=== PATIENT | female | born 1935 | race Caucasian/White ===

== ENCOUNTER 2020-10-30 17:49 | Inpatient (IN) ==
[2020-10-30] MEDS ORDERED: ONDANSETRON INJ 2 MG/ML 2 ML VIAL IV STA (17:57)
[2020-10-30 18:31] LABS: Basophils # (auto) 0.01 K/uL (0-0.2); Basophils % (auto) 0.1 %; Eosinophils # (auto) 0.06 K/uL (0-0.5); Eosinophils % (auto) 0.5 %; Hematocrit (blood only) 40.5 % (37-47); Hemoglobin 13.2 g/dL (12.0-16.0); Immature Granulocytes # (auto) 0.05 K/uL (0.00-0.02); Immature Granulocytes % (auto) 0.5 %; Lymphocytes # (auto) 1.31 K/uL (1.2-3.4); Lymphocytes % (auto) 11.8 %; Mean Corpuscular Hemoglobin 29.1 pg (25-34); Mean Corpuscular Hgb Conc 32.6 g/dL (32-36); Mean Corpuscular Volume 89.4 fL (80-100); Monocytes # (auto) 0.69 K/uL (0.11-0.59); Monocytes % (auto) 6.2 %; Neutrophils # (auto) 8.95 K/uL (1.4-6.5); Neutrophils % (auto) 80.9 %; Platelet Count 192 K/uL (130-400); RDW Coefficient of Variation 13.6 % (11.5-14.5); RDW Standard Deviation 44.7 fL (36.4-46.3); Red Blood Count 4.53 M/uL (4.2-5.4); White Blood Count 11.07 K/uL (4.8-10.8)
--- NOTE | 2020-10-30 18:37 | Emergency Department Note ---
Impression & Plan Intertrochanteric fracture of right hip ED Provider Note NAME: JOEL CHAPPELL AGE: 85 SEX: F : 1935 ARRIVES VIA: Ambulance INFORMANT: Patient, ED PROVIDER(S): Ruel Augustin DO CHIEF COMPLAINT: Hip pain HPI: The patient is an 85-year-old female who presented to the emergency department for an evaluation of hip pain. The patient was on her front porch when she fell. She fell onto her right side striking her hip. She was unable to stand. 911 was called and the patient arrived via BLS. The patient states she did not strike her head. She has no neck pain or chest pain. She denies having any nausea or vomiting. She states that she was unable to stand and has severe pain in her right hip with any attempts to stand. She states she is on no blood thinners. She has no headache or neck pain. She denies having any back pain. She states the pain does radiate down through her right thigh but not into her right knee. She states the pain is moderate to severe with any movement. ROS: See above HPI for pertinent positives & negatives. A total of 10 systems reviewed and were otherwise negative. PAST MEDICAL HISTORY: See Below PAST SURGICAL HISTORY: See Below FAMILY HISTORY: See Below SOCIAL HISTORY: See Below HOME MEDICATIONS: See Below ALLERGIES: See Below VITALS: See Below PHYSICAL EXAMINATION: GENERAL: The patient is awake and alert. The patient is uncomfortable appear ing. EYES: The conjunctivae are clear. The pupils are round and reactive. EARS, NOSE, MOUTH AND THROAT: The nose is without any evidence of any deformity. NECK: The neck is nontender and supple. RESPIRATORY: Normal respiratory effort is noted there is no evidence of wheezing rhonchi or rales CARDIOVASCULAR: Regular rate and rhythm noted there no murmurs rubs or gallops normal S1 normal S2. GASTROINTESTINAL: The abdomen is soft. Abdomen is nontender. BACK: No midline tenderness or or step-off noted range of motion in flexion extension as well as rotation no signs of muscle spasm noted MUSCULOSKELETAL/EXTREMITIES: There is no significant rotation of the right lower extremity but there is significant pain with range of motion testing of the right hip. There is palpable tenderness over the lateral aspect of the right hip. The right lower extremity is mildly shortened. Pulses are symmetric in both feet. SKIN: Skin is warm and dry. There is no significant pedal edema. Multiple ab rasions were noted to both elbows. No active bleeding was noted. Wound dressings were in place. NEUROLOGIC: Patient is awake alert and oriented x3. MEDICAL DECISION MAKING: The patient is an 85-year-old female who presented to the emergency department for an evaluation of hip pain. The patient had a fall from a standing position where she struck her right hip. The patient also had multiple abrasions to both upper extremities. I discussed the patient's laboratory and radiographic studies with her and her son. I also [facility] They will evaluate the patient in the emergency department for further management and disposition. The patient was treated with IV pain medication. She was significantly improved on reevaluation. Triage Nursing notes reviewed. Prior medical records reviewed Vital Signs: reviewed and remarkable for elevated blood pressure. Differential diagnosis: Fracture, dislocation, contusion, intra-abdominal, pneumothorax, intrathoracic, intracranial, neurologic, compartment syndrome, rhabdomyolysis, as well as other pathologies. ER treatment provided: See below Diagnostics interpreted by me: ECG: EKG was obtained in the emergency department. My interpretation is sinus rhythm at 72 bpm. Right bundle branch block pattern was noted. PVC was noted. This was compared to a tracing from April 252007. The ectopy was new otherwise no significant changes were noted. Cardiac Monitoring: An order was placed for continuous cardiac monitoring. The monitor shows a rate of 75 bpm with sinus rhythm. Laboratory studies: As stated above and show below. Imaging studies: See below Consultation(s): 1900: I discussed this case with Dr. Arevalo who is [facility] They will evaluate the patient in the emergency department. 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 Beliefs That Will Affect Care: None Current Living Situation: Alone Other Information That Helps Us Care for You: No Feels Safe at Home: Yes Safety Concerns: Feels Safe At This Time Assistive Devices: Glasses Allergies Allergies Allergy/AdvReac Type Severity Reaction Status Date / Time amitriptyline Allergy felt Verified 10/30/20 19:05 fearful Penicillins Allergy throat Verified 10/30/20 19:05 swelling Home Meds Home Medications Medication Instructions Recorded Confirmed cholecalciferol (vitamin D3) 25 25 mcg PO DAILY@1000 10/30/20 10/30/20 mcg (1,000 unit) tablet (Vitamin D3) cyanocobalamin (vitamin B-12) 1,000 mcg PO DAILY 10/30/20 10/30/20 1,000 mcg tablet (Vitamin B-12) escitalopram oxalate 5 mg tablet 5 mg PO PM 10/30/20 10/30/20 folic acid 1 mg tablet 1 mg PO DAILY 10/30/20 10/30/20 lorazepam 0.5 mg tablet 0.5 mg PO TID 10/30/20 10/30/20 mesalamine 500 mg 1,000 mg PO TID 10/30/20 10/30/20 capsule,controlled release (Pentasa) pantoprazole 40 mg tablet,delayed 40 mg PO DAILYBB 10/30/20 10/30/20 release verapamil 240 mg tablet,extended 240 mg PO QAM 10/30/20 10/30/20 release Results & Data (ED) Vital Signs Vital Signs - 24 hr 10/30/20 18:03 Temperature 36.9 C Temperature Source Oral Pulse Rate 74 Respiratory Rate 16 Respiratory Effort / Characteristics Non-Labored Respiratory Depth Normal Blood Pressure 186/102 H Blood Pressure Mean 130 Pulse Oximetry 96 Oxygen Delivery Method Room Air Sepsis Recent Fever Within 48 Hours No Sepsis New/Unexplained Change in Mental Status N/A Sepsis Action Taken by Nursing No Action Required Laboratory Data Result diagrams: 10/31/20 07:08 10/31/20 07:08 Lab Results 10/30/20 10/30/20 10/30/20 Range/Units 18:10 18:10 18:20 WBC 11.07 H (4.8-10.8) K/uL RBC 4.53 (4.2-5.4) M/uL Hgb 13.2 (12.0-16.0) g/dL Hct 40.5 (37-47) % MCV 89.4 (80-100) fL MCH 29.1 (25-34) pg MCHC 32.6 (32-36) g/dL RDW Std Deviation 44.7 (36.4-46.3) fL RDW Coeff of Saturnino 13.6 (11.5-14.5) % Plt Count 192 (130-400) K/uL MPV 11.0 H (7.4-10.4) fL Immature Gran % (Auto) 0.5 % Neut % (Auto) 80.9 % Lymph % (Auto) 11.8 % Esmeralda % (Auto) 6.2 % Eos % (Auto) 0.5 % Baso % (Auto) 0.1 % Neut # (Auto) 8.95 H (1.4-6.5) K/uL Lymph # (Auto) 1.31 (1.2-3.4) K/uL Esmeralda # (Auto) 0.69 H (0.11-0.59) K/uL Eos # (Auto) 0.06 (0-0.5) K/uL Baso # (Auto) 0.01 (0-0.2) K/uL Immature Gran # (Auto) 0.05 H (0.00-0.02) K/uL PT (9.0-12.0) Seconds INR (0.9-1.1) APTT (21.0-31.0) Seconds PTT Ratio Sodium (136-145) mmol/L Potassium (3.5-5.1) mmol/L Chloride (98-107) mmol/L Carbon Dioxide (21-32) mmol/L Anion Gap (3-11) BUN (7-18) mg/dl Creatinine (0.6-1.2) mg/dl Est Cr Clr Drug Dosing ml/min Est GFR ( Amer) ml/min Est GFR (Non-Af Amer) ml/min BUN/Creatinine Ratio (10-20) Glucose (70-99) mg/dl Calcium (8.5-10.1) mg/dl Magnesium (1.8-2.4) mg/dl Total Bilirubin (0.2-1) mg/dl AST (15-37) U/L ALT (12-78) U/L Alkaline Phosphatase (45-117) U/L Total Creatine Kinase (26-192) U/L Troponin I (0-0.045) ng/ml Total Protein (6.4-8.2) gm/dl Albumin (3.4-5.0) gm/dl Globulin (2.5-4.0) gm/dl Albumin/Globulin Ratio (0.9-2) TSH (0.300-4.500) uIu/ml COVID-19 Eval Order Covid19 at [facility] SARS-CoV-2 (PCR) NEGATIVE (Negative) 10/30/20 10/30/20 Range/Units 18:20 18:20 WBC (4.8-10.8) K/uL RBC (4.2-5.4) M/uL Hgb (12.0-16.0) g/dL Hct (37-47) % MCV (80-100) fL MCH (25-34) pg MCHC (32-36) g/dL RDW Std Deviation (36.4-46.3) fL RDW Coeff of Saturnino (11.5-14.5) % Plt Count (130-400) K/uL MPV (7.4-10.4) fL Immature Gran % (Auto) % Neut % (Auto) % Lymph % (Auto) % Esmeralda % (Auto) % Eos % (Auto) % Baso % (Auto) % Neut # (Auto) (1.4-6.5) K/uL Lymph # (Auto) (1.2-3.4) K/uL Esmeralda # (Auto) (0.11-0.59) K/uL Eos # (Auto) (0-0.5) K/uL Baso # (Auto) (0-0.2) K/uL Immature Gran # (Auto) (0.00-0.02) K/uL PT 10.0 (9.0-12.0) Seconds INR 1.0 (0.9-1.1) APTT 23.0 (21.0-31.0) Seconds PTT Ratio 0.9 Sodium 142 (136-145) mmol/L Potassium 3.6 (3.5-5.1) mmol/L Chloride 108 H (98-107) mmol/L Carbon Dioxide 27 (21-32) mmol/L Anion Gap 7.0 (3-11) BUN 16 (7-18) mg/dl Creatinine 1.00 (0.6-1.2) mg/dl Est Cr Clr Drug Dosing 36.3 ml/min Est GFR ( Amer) 59.1 ml/min Est GFR (Non-Af Amer) 51.0 ml/min BUN/Creatinine Ratio 15.9 (10-20) Glucose 108 H (70-99) mg/dl Calcium 9.0 (8.5-10.1) mg/dl Magnesium 1.9 (1.8-2.4) mg/dl Total Bilirubin 0.3 (0.2-1) mg/dl AST 13 L (15-37) U/L ALT 20 (12-78) U/L Alkaline Phosphatase 68 (45-117) U/L Total Creatine Kinase 87 (26-192) U/L Troponin I < 0.015 (0-0.045) ng/ml Total Protein 7.5 (6.4-8.2) gm/dl Albumin 3.8 (3.4-5.0) gm/dl Globulin 3.7 (2.5-4.0) gm/dl Albumin/Globulin Ratio 1.0 (0.9-2) TSH 1.210 (0.300-4.500) uIu/ml COVID-19 Eval Order SARS-CoV-2 (PCR) (Negative) Administered Medications Cyanocobalamin (Cyanocobalamin 500 Mcg Tablet (Vitamin B-12)) 1,000 mcg PO DAILY YOANA Stop: 11/30/20 08:59 Last Admin: 10/31/20 07:51 Dose: 1,000 mcg Documented by: [id number] Escitalopram Oxalate (Escitalopram Oxalate 10 Mg Tab) 5 mg PO PM YOANA Stop: 11/29/20 21:59 Last Admin: 10/30/20 21:43 Dose: 5 mg Documented by: [id number] Folic Acid (Folic Acid 1 Mg Tab) 1 mg PO DAILY YOANA Stop: 11/30/20 08:59 Last Admin: 10/31/20 07:52 Dose: 1 mg Documented by: [id number] Lactated Ringer's (Lr) 1,000 mls @ 50 mls/hr IV .Q20H YOANA Stop: 11/29/20 21:09 Last Admin: 10/30/20 21:42 Dose: 50 mls/hr Documented by: [id number] Lorazepam (Lorazepam 0.5 Mg Tab) 0.5 mg PO TID YOANA Stop: 11/29/20 21:59 Last Admin: 10/31/20 07:52 Dose: 0.5 mg Documented by: [id number] Admin: 10/31/20 07:20 Dose: Not Given Documented by: [id number] Mesalamine (Mesalamine 250 Mg Capcr) 1,000 mg PO TID@1000,1500,2200 YOANA Stop: 11/29/20 21:59 Last Admin: 10/30/20 21:43 Dose: 1,000 mg Documented by: [id number] Morphine Sulfate (Morphine Sulfate 2 Mg/Ml Carp) 2 mg IV Q4H PRN PRN Reason: Pain (1,2,3,4,5) & Pre PT Stop: 11/13/20 20:55 Last Admin: 10/31/20 02:04 Dose: 2 mg Documented by: [id number] Admin: 10/30/20 21:42 Dose: 2 mg Documented by: [id number] Pantoprazole Sodium (Pantoprazole 40 Mg Tab) 40 mg PO DAILYBB [facility] Stop: 11/30/20 06:29 Last Admin: 10/31/20 07:51 Dose: 40 mg Documented by: [id number] Senna/Docusate Sodium (Docusate Sodium/Senna 50/8.6mg Tab) 2 tab PO HS [facility] Stop: 11/29/20 21:59 Last Admin: 10/30/20 21:56 Dose: Not Given Documented by: [id number] Verapamil HCl (Verapamil Hcl 240 Mg Tabcr) 240 mg PO QAM YOANA Stop: 11/30/20 08:59 Last Admin: 10/31/20 07:52 Dose: 240 mg Documented by: [id number] Discontinued Medications Fentanyl Citrate (Fentanyl Citrate 100 Mcg/2 Ml Vial) 25 mcg IV Q15M PRN PRN Reason: Pain Stop: 11/13/20 17:56 Last Admin: 10/30/20 19:41 Dose: 25 mcg Documented by: [id number] Admin: 10/30/20 18:49 Dose: 25 mcg Documented by: [id number] Ondansetron HCl (Ondansetron Inj 2 Mg/Ml 2 Ml Vial) 4 mg IV NOW STA Stop: 10/30/20 17:58 Last Admin: 10/30/20 18:49 Dose: 4 mg Documented by: [id number] Imaging Data Radiologist's Impression: Chest X-Ray 10/30/20 17:57 XR chest 1V portable CLINICAL HISTORY: weakness COMPARISON STUDY: January 30, 2013 FINDINGS: No pneumothorax. Minimal blunting of the left costophrenic angle is seen and might represent small left pleural effusion or pleural thickening. Eventration of the right hemidiaphragm appear more prominent since prior study in 2012. No large infiltrates or consolidative lesions are seen. Diffuse prominence of pulmonary interstitium is seen bilaterally. Cardiomediastinal silhouette is within normal limits in size. Aorta is tortuous and calcified. Interval development of a double density sign superimposed on the right cardiac silhouette which might represent enlargement of the left atrium or paraspinal lesion. No significant pulmonary vascular congestion.. Osseous structures: Osteopenia. Degenerative changes of the spine. IMPRESSION: 1. No large infiltrates or consolidative lesions. 2. Possible enlargement of the left atrium versus paraspinal lesion as detailed above. 3. Possible minimal left pleural effusion. 4. Diffuse prominence of pulmonary interstitium. 5. Atherosclerosis. ACT 112: Positive. There are findings on this exam that require communication between the performing entity and the patient following Patient Test Result Information Act ([place] Act 112) guidelines. The above report was generated using voice recognition software. It may contain grammatical, syntax or spelling errors. Electronically signed by: Hanny Cole DO 10/30/2020 6:55 PM Hip/Pelvis X-Ray 10/30/20 17:57 XR hip RT 2V w pelvis CLINICAL HISTORY: Fall. Right hip pain COMPARISON: December 22, 2017 DISCUSSION: There is comminuted intertrochanteric fracture of the right hip is seen with minimal impaction. No definite dislocation is seen. IMPRESSION: As above ACT 112: Negative or not required by law. The above report was generated using voice recognition software. It may contain grammatical, syntax or spelling errors. Electronically signed by: Hanny Cole DO 10/30/2020 6:48 PM Discharge Plan Visit Data Chief Complaint: Hip Pain Stated Complaint: FALL, HIP PAIN ED Provider: Ruel Augustin Discharge Problem: Intertrochanteric fracture of right hip Patient Disposition: Admitted As Inpatient Condition: Good Discharge Instructions Interventions: ED Discharge Assessment Last Done: 10/30/20 20:37 Discharge Problem: Intertrochanteric fracture of right hip Qualifiers: Encounter type: initial encounter Fracture type: closed Fracture alignment: displaced Qualified Code(s): S72.141A - Displaced intertrochanteric fracture of right femur, initial encounter for closed fracture
[2020-10-30 18:42] LABS: Partial Thromboplastin Ratio 0.9
[2020-10-30 18:48] LABS: Alanine Aminotransferase 20 U/L (12-78); Albumin Level 3.8 gm/dl (3.4-5.0); Aspartate Aminotransferase 13 U/L (15-37); BUN Creatinine Ratio 15.9 (10-20); Blood Urea Nitrogen 16 mg/dl (7-18); Carbon Dioxide 27 mmol/L (21-32); Chloride 108 mmol/L (98-107); Creatinine Clr Calc Pharmacy 36.3 ml/min; Est GFR (African American) 59.1 ml/min; Glucose 108 mg/dl (70-99); Magnesium 1.9 mg/dl (1.8-2.4); Potassium 3.6 mmol/L (3.5-5.1); Sodium 142 mmol/L (136-145)
[2020-10-30] MEDS: fentaNYL citrate 100 MCG/2 ML VIAL IV PRN ×2 (18:49→19:41)
--- NOTE | 2020-10-30 18:50 | XRay Report ---
XR hip RT 2V w pelvis CLINICAL HISTORY: Fall. Right hip pain COMPARISON: December 22, 2017 DISCUSSION: There is comminuted intertrochanteric fracture of the right hip is seen with minimal impaction. No de finite dislocation is seen. IMPRESSION: As above ACT 112: Negative or not required by law. The above report was generated using voice recognition software. It may contain grammatical, syntax o r spelling errors. Electronically signed by: Hanny Cole DO 10/30/2020 6:48 PM
--- NOTE | 2020-10-30 18:56 | XRay Report ---
XR chest 1V portable CLINICAL HISTORY: weakness COMPARISON STUDY: January 30, 2013 FINDINGS: No pneumothorax. Minimal blunting of the left costophrenic angle is seen and might represent small left pleural effusi on or pleural thickening. Eventration of the right hemidiaphragm appear more prominent since prior st udy in 2012. No large infiltrates or consolidative lesions are seen. Diffuse prominence of pulmonary interstitium is seen bilaterally. Cardiomediastinal silhouette is within normal limits in size. Aorta is tortuous and calcified. Interval development of a double density sign superimposed on the ri ght cardiac silhouette which might represent enlargement of the left atrium or paraspinal lesion. No significant pulmonary vascular congestion.. Osseous structures: Osteopenia. Degenerative changes of the spine. IMPRESSION: 1. No large infiltrates or consolidative lesions. 2. Possible enlargement of the left atrium versus paraspinal lesion as detailed above. 3. Possible minimal left pleural effusion. 4. Diffuse prominence of pulmonary interstitium. 5. Atherosclerosis. ACT 112: Positive. There are findings on this exam that require communication between the performing entity and the patient following Patient Test Result Information Act ([place] Act 112) guidelines. The above report was generated using voice recognition software. It may contain grammatical, syntax o r spelling errors. Electronically signed by: Hanny Cole DO 10/30/2020 6:55 PM
[2020-10-30 18:59] LABS: Alkaline Phosphatase 68 U/L (45-117); Bilirubin,Total 0.3 mg/dl (0.2-1); Globulin 3.7 gm/dl (2.5-4.0); Total Protein 7.5 gm/dl (6.4-8.2); Troponin I < 0.015 ng/ml (0-0.045)
--- NOTE | 2020-10-30 19:42 | History & Physical Report ---
Date of Service October 30, 2020 Assessment & Plan (1) Intertrochanteric fracture of right hip: Plan: Kimberlyn is an 85-year-old female with a notable past medical history of hypertension, Crohn's disease status post resection, and anxiety who presents today for right hip pain. Kimberlyn says she was at home on her front porch, walking up a step when she fell on her right side and hit her hip, subsequently found to have an intertrochanteric fracture involving the RIGHT hip. Right Intertrochanteric Fracture In the setting of mechanical fall onto right side/hip X-ray of right hip demonstrating commuted intertrochanteric fracture with mi nimal impaction Consult orthopedics, [facility], for aid in likely procedural management Hemodynamically stable. H&H within normal range. Type and screen sent N.p.o. Tylenol 1 g IV as needed for pain, as needed, alongside morphine 2 mg IV every 4 as neededcan consider increasing as needed Activity: No ambulation for now, stay in bed We will add CPK given that patient was down for multiple hours prior to being found Left atrial enlargement versus paraspinal lesion Chest x-ray revealing for mediastinal/retromediastinal enlargement, suggestive of possible atrial enlargement versus paraspinal mass In setting of fracture, as well as potential procedure, proceed with CT of the chest with focus on spine and right atrium for further characterization ECG revealing for left axis deviation and right bundle branch block, no significant hypertrophy Pending results of study, can consider further imaging studies (e.g., echocardiography) versus consultation as needed Anxiety Stable at present Continue Ativan 0.5 mg 3 times daily; of note, I confirmed with patient that this is what she takes at home, she does not take it as needed, she takes it scheduled Hypertension Continue verapamil to 40 mg every morning Crohn's disease Status post resection Stable, continue mesalamine Dispo: MS PPX: SCDs FEN/GI: NPO. LR @ 50cc/hr (04/15 [facility]) Code: FULL CODE (2) HTN (hypertension): (3) Crohn disease: History of Present Illness Primary Care Provider: Mariza Lord DO Kimberlyn is an 85-year-old female with a notable past medical history of hypertension, Crohn's disease status post resection, and anxiety who presents today for right hip pain. Kimberlyn says she was at home on her front porch, walking up a step when she fell on her right side and hit her hip. She felt pain immediately, but denies hitting her head or loss of consciousness. She said that she laid on the ground for almost an hour before someone was able to get help, at which time her niece came over to see her and initiate getting her over to the hospital. Prior to this, she denied any lightheadedness or dizziness. She denied any chest pain, palpitations, shortness of breath. Says she was otherwise within her normal health. No previous history of fractures. In the ED, patient was found to have evidence of a right intertrochanteric fracture as well as the chest x-ray revealing of an area within the general region of the left atrium, suggestive of possible left atrial enlargement versus paraspinal mass/lesion. She was given fentanyl X 1 with good control pain. She lives at home alone. Past medical history significant for hypertension, anxiety, Crohn's status post resection, and previous achalasia status post esophageal surgery. She is on verapamil 240 daily for hypertension, esomeprazole 40 daily for gastroesophageal reflux, Ativan 0.5 mg 3 times daily for anxiety, as well as mesalamine 1 g 3 times daily. Other than the aforementioned, her only other abdominal surgery is previous cholecystectomy. She denies tobacco use, alcohol use, and recreational drug use. Allergies Allergy/AdvReac Type Severity Reaction Status Date / Time amitriptyline Allergy felt Verified 10/30/20 19:05 fearful Penicillins Allergy throat Verified 10/30/20 19:05 swelling Home Medications Medication Instructions Recorded Confirmed Type cholecalciferol (vitamin D3) 25 25 mcg PO DAILY@1000 10/30/20 10/30/20 History mcg (1,000 unit) tablet (Vitamin D3) cyanocobalamin (vitamin B-12) 1,000 mcg PO DAILY 10/30/20 10/30/20 History 1,000 mcg tablet (Vitamin B-12) escitalopram oxalate 5 mg tablet 5 mg PO PM 10/30/20 10/30/20 History folic acid 1 mg tablet 1 mg PO DAILY 10/30/20 10/30/20 History lorazepam 0.5 mg tablet 0.5 mg PO TID 10/30/20 10/30/20 History mesalamine 500 mg 1,000 mg PO TID 10/30/20 10/30/20 History capsule,controlled release (Pentasa) pantoprazole 40 mg tablet,delayed 40 mg PO DAILYBB 10/30/20 10/30/20 History release verapamil 240 mg tablet,extended 240 mg PO QAM 10/30/20 10/30/20 History release Past Med/Surg History Medical History (Updated 10/31/20 @ 13:06 by Madi Meredith DO) Crohn's disease (01/30/13) GERD (gastroesophageal reflux disease) History of hypertension Surgical History History of bowel resection Social History Smoking Status: Never smoker Hx Alcohol Use: No Hx Substance Use: No Preferred Language: [place] Communication Ability: Effective Sports Photographer Required: No Beliefs That Will Affect Care: None marital status: / Current Living Situation: Alone Other Information That Helps Us Care for You: No Feels Safe at Home: Yes Safety Concerns: Feels Safe At This Time Assistive Devices: None Review of Systems Review of Systems: Constitutional: Denies fever, chills, malaise, weight change Eyes: Denies double vision, vision change, eye pain ENT: Denies ear pain, sore throat, sinus pain Cardiovascular: Denies Chest pain, chest pressure, palpitations, extremity swelling Respiratory: Denies shortness of breath, cough, sputum production, difficulty breathing Gastrointestinal: Denies abdominal pain, nausea, vomiting, constipation, diarrhea Genitourinary: Denies urinary symptoms including dysuria Musculoskeletal: Denies weakness, muscle aches/pain, joint aches/pain Integumentary:Denies rash, lesions, bruising Neurological: Denies headache, numbness, tingling, focal weakness Physical Exam Physical Exam: General: Well-appearing 85-year-old female who is lying back in her hospital bed relaxed upon my arrival. No acute distress. HEENT: NCAT. Eyes - Sclera are white, anicteric, and without injection. PERRL. EOMs display full ROM bilaterally. Mouth - MMM with no tonsillar edema or exudates. Nose - nasal turbinates are uninflamed and without discharge. Cardiac: Normal rate and regular rhythm; S1 and S2 present with no murmurs, rubs, or gallops. Pulmonary: Good respiratory effort with symmetric expansion of the chest. No use of accessory muscles. Lungs were clear to auscultation bilaterally with no crackles or wheezes. Abdominal: Normoactive bowel sounds. Abdomen was soft, nondistended, and non- tender to palpation. Extremities: Upper and lower extremities are warm and well perfused. Capillary refill assessed in UE was < 3 sec in UE/LE MSK: Visual examination of the right hip does not reveal any obvious contusion or hematoma. There is no obvious deformities with palpation. There is mild tenderness to palpation on the general vicinity of the intertrochanteric groove. There is 23/5 strength at the right hip with flexion. There is 4/5 strength at the right knee with supported passive flexion. Distal pulses 2+. Capillary refill under 3 seconds. Left hip strength 5 out of 5. Good distal perfusion. Psych: Well-developed, well-nourished, appropriately dressed for occasion. Behavior is cooperative and appropriate. Affect is WNL. Insight is appropriate. Results & Data Results & Data ([facility]) Vital Signs (Past 12 Hours) Vital Signs Temp Pulse Pulse Resp BP BP Pulse Ox 10/30/20 19:27 67 16 176/81 H 93 10/30/20 18:03 36.9 C 74 16 186/102 H 96 Code Status & VTE Plan VTE Prophylaxis Plan VTE Prophylaxis will be ordered: Yes Supervising Physician Co-Signing Physician Notes Attending addendum: I have physically seen this patient, have supervised the medical residents activities, and agree with the H&P unless as otherwise noted. Assessment and Plan: Closed right intertrochanteric fracture of hip- Status post mechanical fall NPO after midnight Acetaminophen 1 g IV every 8 hours as needed mild pain or fever Morphine sulfate 2 mg IV every 4 hours as needed severe pain IV fluids Hypertension- Continue verapamil SR 240 mg every morning GERD- Continue pantoprazole 40 mg daily Crohn's- Continue mesalamine at 1000 mg p.o. 3 times daily Remaining orders and notations as noted Resident Activity Tracking Resident Involvement: Resident Care Provided Care Provided: [facility]
[2020-10-30 20:21] LABS: Creatine Kinase 87 U/L (26-192)
[2020-10-30] MEDS ORDERED: bisacodyL 10 MG SUPP PR PRN (20:56)
[2020-10-30] MEDS ORDERED: NALOXONE HCL 0.4 MG/1 ML VIAL/CARP IV PRN (20:56)
[2020-10-30] MEDS ORDERED: MAGNESIUM HYDROXIDE SUSP 30 ML UDC PO PRN (20:56)
--- NOTE | 2020-10-30 21:41 | CT Scan Report ---
CT chest diagnostic wo con CLINICAL HISTORY: eval for paraspinal lesion vs. atrial enlargement COMPARISON STUDY: No previous studies for comparison. CT DOSE: 183.52 mGy.cm TECHNIQUE: CT of the thorax was performed from the thoracic inlet to the lung bases. Images are revi ewed in the axial, sagittal, and coronal planes. IV contrast was not administered for this examinatio n. A dose lowering technique was utilized adhering to the principles of ALARA. FINDINGS: There is no axial, supra clavicle or internal mammary lymphadenopathy seen. Few mediastinal lymph nod es measure less than 1 cm in short axis which is nonpathological by CT size criteria. Thyroid: Heterogeneous appearance of visualized portion of thyroid gland with multiple ill-defined an d partial calcified nodules within the right thyroid lobe. Esophagus is patulous. Thoracic aorta: The thoracic aorta is normal in course and caliber, noting standard 3 vessel arch kameron aaron. Heart: The heart is normal in size and configuration, without pericardial effusion. Severe coronary c alcifications are seen. Lungs and pleural spaces: Tracheobronchial tree is patent. Few linear densities are seen within dependent portion of bilateral lower lobes. No large infiltrates or consolidative lesions are seen. There is elevation of the right hemidiaphragm and mild volume loss of the right hemithorax which is a ssociated with mild midline shift to the right which could cause the mediastinal silhouette abnormali ties which was seen on recent chest radiograph. No pleural effusion is seen. Upper abdomen: Partially visualized upper abdominal viscera is within normal limits. Skeletal structures: Diffuse osteopenia and multilevel degenerative changes of the spine. Multiple la rge Schmorl nodules are seen. Small compression fracture deformity of the T12 is seen. IMPRESSION: 1. Elevation of the right hemidiaphragm and volume loss on the right is seen with mild mediastinal s hift to the right which could explain cardiomediastinal silhouette changes noted on recent chest rad iograph. No evidence of paraspinal mass is seen. 2. Atelectasis at bilateral bases. 3. Heterogeneous appearance of thyroid gland with multiple small nodules on the right as detailed ab ove. 4. Atherosclerosis. 5. The rest of findings as detailed above. ACT 112: Negative or not required by law. The above report was generated using voice recognition software. It may contain grammatical, syntax o r spelling errors. Electronically signed by: Hanny Cole DO 10/30/2020 9:40 PM
[2020-10-30] MEDS: LACTATED RINGER'S 1,000 ML IV SCH (21:42)
[2020-10-30] MEDS: MoRPHine SULFATE 2 MG/ML CARP IV PRN (21:42)
[2020-10-30] MEDS: ESCITALOPRAM OXALATE 10 MG TAB PO SCH (21:43)
[2020-10-30] MEDS: MESALAMINE 250 MG CAPCR PO SCH (21:43)
[2020-10-30] MEDS: DOCUSATE SODIUM/SENNA 50/8.6MG TAB PO SCH (21:56)
[2020-10-30 22:35] LABS: Appearance Urine Clear (Clear); Bilirubin Urine Negative (Negative); Blood Urine Negative (Negative); Color Urine Yellow; Glucose Urine UA Negative (Negative); Ketones Urine Trace (Negative); Leukocyte Esterase Urine Negative (Negative); Nitrite Urine Negative (Negative); Protein Urine Negative (Negative); Specific Gravity Urine 1.017 (1.000-1.030); Urobilinogen Urine Negative (Negative)
[2020-10-31] MEDS: MoRPHine SULFATE 2 MG/ML CARP IV PRN ×3 (02:04→19:28)
[2020-10-31] MEDS ORDERED: CLINDAMYCIN 600 MG/54 ML BAG IV SCH (06:00)
--- NOTE | 2020-10-31 06:42 | Anesthesiology Consultation ---
Date of Service October 31, 2020 Assessment & Plan Chart Review Chart Review: Acceptable Risk for Surgery History Height/Weight Height: 5 ft 3 in Weight: 63.6 kg Allergies Allergy/AdvReac Type Severity Reaction Status Date / Time amitriptyline Allergy felt Verified 10/30/20 19:05 fearful Penicillins Allergy throat Verified 10/30/20 19:05 swelling Medications Home Medications Medication Instructions Recorded Confirmed Last Taken cholecalciferol (vitamin D3) 25 25 mcg PO DAILY@1000 10/30/20 10/30/20 10/30/20 mcg (1,000 unit) tablet (Vitamin D3) cyanocobalamin (vitamin B-12) 1,000 mcg PO DAILY 10/30/20 10/30/20 10/30/20 1,000 mcg tablet (Vitamin B-12) At lunch escitalopram oxalate 5 mg tablet 5 mg PO PM 10/30/20 10/30/20 10/29/20 folic acid 1 mg tablet 1 mg PO DAILY 10/30/20 10/30/20 10/30/20 lorazepam 0.5 mg tablet 0.5 mg PO TID 10/30/20 10/30/20 10/30/20 mesalamine 500 mg 1,000 mg PO TID 10/30/20 10/30/20 10/30/20 capsule,controlled release (Pentasa) pantoprazole 40 mg tablet,delayed 40 mg PO DAILYBB 10/30/20 10/30/20 10/30/20 release verapamil 240 mg tablet,extended 240 mg PO QAM 10/30/20 10/30/20 10/30/20 release Active Medications Generic Name Dose Route Start Last Admin Trade Name Shyam PRRigo Reason Stop Dose Admin Escitalopram Oxalate 5 mg 10/30/20 22:00 10/30/20 21:43 Escitalopram Oxalate 10 Mg Tab PO 11/29/20 21:59 5 mg PM YOANA Administration Lactated Ringer's 1,000 mls @ 50 mls/hr 10/30/20 21:10 10/30/20 21:42 Lr IV 11/29/20 21:09 50 mls/hr .Q20H YOANA Administration Mesalamine 1,000 mg 10/30/20 22:00 10/30/20 21:43 Mesalamine 250 Mg Capcr PO 11/29/20 21:59 1,000 mg TID@1000,1500,2200 YOANA Administration Morphine Sulfate 2 mg 10/30/20 20:56 10/31/20 02:04 Morphine Sulfate 2 Mg/Ml Carp IV 11/13/20 20:55 2 mg Q4H PRN Administration Pain (1,2,3,4,5) & Pre PT Senna/Docusate Sodium 2 tab 10/30/20 22:00 10/30/20 21:56 Docusate Sodium/Senna 50/8.6mg Tab PO 11/29/20 21:59 Not Given HS YOANA Past Medical History Medical History Crohn's disease (01/30/13) GERD (gastroesophageal reflux disease) History of hypertension Past Surgical History Surgical History History of bowel resection Social History Smoking Status: Never smoker Hx Alcohol Use: No Hx Substance Use: No Physical Exam Vital Signs Last Vital Signs Temp 36.6 C 10/31/20 00:56 Pulse 78 10/31/20 00:56 Resp 14 10/31/20 00:56 BP 186/69 H 10/30/20 21:26 Pulse Ox 92 10/31/20 05:00 Testing Laboratory Results 10/30/20 18:20 10/30/20 18:20 PT 10.0 Seconds (9.0-12.0) 10/30/20 18:20 INR 1.0 (0.9-1.1) 10/30/20 18:20 APTT 23.0 Seconds (21.0-31.0) 10/30/20 18:20 Urine Color Yellow 10/30/20 22:15 Urine Appearance Clear (Clear) 10/30/20 22:15 Urine pH 5.0 (4.5-7.5) 10/30/20 22:15 Ur Specific [place] 1.017 (1.000-1.030) 10/30/20 22:15 Urine Protein Negative (Negative) 10/30/20 22:15 Urine Glucose (UA) Negative (Negative) 10/30/20 22:15 Urine Ketones Trace (Negative) H 10/30/20 22:15 Urine Nitrite Negative (Negative) 10/30/20 22:15 Ur Leukocyte Esterase Negative (Negative) 10/30/20 22:15 Blood Type O Positive 10/30/20 21:39 Antibody Screen NEGATIVE 10/30/20 21:39
[2020-10-31] MEDS: LORazepam 0.5 MG TAB PO SCH ×4 (07:20→21:26)
[2020-10-31 07:25] LABS: Basophils # (auto) 0.01 K/uL (0-0.2); Basophils % (auto) 0.1 %; Eosinophils # (auto) 0.03 K/uL (0-0.5); Eosinophils % (auto) 0.2 %; Hematocrit (blood only) 38.1 % (37-47); Hemoglobin 12.5 g/dL (12.0-16.0); Immature Granulocytes # (auto) 0.02 K/uL (0.00-0.02); Immature Granulocytes % (auto) 0.1 %; Lymphocytes # (auto) 1.81 K/uL (1.2-3.4); Lymphocytes % (auto) 12.9 %; Mean Corpuscular Hemoglobin 29.3 pg (25-34); Mean Corpuscular Hgb Conc 32.8 g/dL (32-36); Mean Corpuscular Volume 89.2 fL (80-100); Mean Platelet Volume 10.9 fL (7.4-10.4); Monocytes % (auto) 11.4 %; Neutrophils # (auto) 10.52 K/uL (1.4-6.5); Neutrophils % (auto) 75.3 %; Platelet Count 182 K/uL (130-400); RDW Coefficient of Variation 13.7 % (11.5-14.5); RDW Standard Deviation 45.2 fL (36.4-46.3); Red Blood Count 4.27 M/uL (4.2-5.4); White Blood Count 13.99 K/uL (4.8-10.8)
[2020-10-31] MEDS: CYANOCOBALAMIN 500 MCG TABLET (VITAMIN B-12) PO SCH (07:51)
[2020-10-31] MEDS: PANTOprazole 40 MG TAB PO SCH (07:51)
[2020-10-31] MEDS: FOLIC ACID 1 MG TAB PO SCH (07:52)
[2020-10-31] MEDS: VERAPAMIL HCL 240 MG TABCR PO SCH (07:52)
[2020-10-31 07:56] LABS: BUN Creatinine Ratio 18.1 (10-20); Calcium 8.2 mg/dl (8.5-10.1); Est GFR (Non-African American) 73.4 ml/min; Magnesium 1.7 mg/dl (1.8-2.4); Potassium 3.5 mmol/L (3.5-5.1)
--- NOTE | 2020-10-31 08:18 | Orthopedic Consultation ---
Date of Consultation October 31, 2020 Assessment & Plan (1) Intertrochanteric fracture of right hip: X-rays reviewed. Patient will require a right trochanteric femoral nail. Patient has currently been added onto the surgical schedule pending medical clearance. She is currently n.p.o. I discussed surgery with the patient who is in agreement. All questions answered to the best of my ability. History of Present Illness Reason for Consultation: Right intertrochanteric hip fracture Attending Physician: Madi Meredith DO History of Present Illness Patient is patient is a 85-year-old white female with past medical history of hypertension, Crohn's disease status post resection. Patient states that she was out on her front porch watering her amezquita. As she was returning back to the house from the porch, she lost her balance while taking a step and fell onto her right side. She had immediate pain in the right hip and groin and had difficulty ambulating. She denies hitting her head. She denies loss of consciousness. She denies any shortness of breath, chest pain, lightheadedness prior to or after the fall. She was brought to the emergency room here at [facility] and x-rays were taken. It was found that she had a right intertrochanteric hip fracture and we have been asked to take care of his hip fracture. Allergies Allergy/AdvReac Type Severity Reaction Status Date / Time amitriptyline Allergy felt Verified 10/30/20 19:05 fearful Penicillins Allergy throat Verified 10/30/20 19:05 swelling Home Medications Medication Instructions Recorded Confirmed Type cholecalciferol (vitamin D3) 25 25 mcg PO DAILY@1000 10/30/20 10/30/20 History mcg (1,000 unit) tablet (Vitamin D3) cyanocobalamin (vitamin B-12) 1,000 mcg PO DAILY 10/30/20 10/30/20 History 1,000 mcg tablet (Vitamin B-12) escitalopram oxalate 5 mg tablet 5 mg PO PM 10/30/20 10/30/20 History folic acid 1 mg tablet 1 mg PO DAILY 10/30/20 10/30/20 History lorazepam 0.5 mg tablet 0.5 mg PO TID 10/30/20 10/30/20 History mesalamine 500 mg 1,000 mg PO TID 10/30/20 10/30/20 History capsule,controlled release (Pentasa) pantoprazole 40 mg tablet,delayed 40 mg PO DAILYBB 10/30/20 10/30/20 History release verapamil 240 mg tablet,extended 240 mg PO QAM 10/30/20 10/30/20 History release Patient History Medical History Crohn's disease (01/30/13) GERD (gastroesophageal reflux disease) History of hypertension Surgical History History of bowel resection Social History Smoking Status: Never smoker Hx Alcohol Use: No Hx Substance Use: No Preferred Language: Swiss Communication Ability: Effective Bar Useful Or Busser Required: No Beliefs That Will Affect Care: None Current Living Situation: Alone Other Information That Helps Us Care for You: No Feels Safe at Home: Yes Safety Concerns: Feels Safe At This Time Assistive Devices: Glasses Review of Systems Review of Systems: All systems reviewed & are unremarkable except as noted in HPI & below Physical Exam Physical Exam: On examination, the patient is currently awake and alert. She appears comfortable. She states that her pain is controlled unless she tries to move. She is alert and oriented x3. No acute distress. Pleasant cooperative. On examination of her right lower extremity, it is shortened and externally rotated compared to the left. No attempts were made to do hip range of motion secondary to fracture. Her right knee is nontender on palpation and there is no effusion. Range of motion is deferred at this time secondary to right hip fracture. She has good range of motion of her right ankle and toes without discomfort. Left lower extremity is unremarkable and has good range of motion as well as being nontender at the hip, knee, ankle. Upper extremities appear unaffected at this time. She is nontender at the shoulders, elbows, and wrists. Range of motion is within normal limits. She denies any pain on palpation of her cervical spine. Denies pain of thoracic and/or lumbar spine as well. Distal pulses are equal bilaterally of the upper and lower extremities. There is no gross motor or sensory loss seen at this time. Results & Data ([facility]) Vital Signs (Past 12 Hours) Vital Signs Temp Pulse Resp BP Pulse Ox Pulse Ox 10/31/20 07:36 37.2 C 68 18 169/75 H 90 10/31/20 05:00 92 10/31/20 01:00 91 10/31/20 00:56 36.6 C 78 14 92 10/30/20 21:26 36.7 C 70 19 186/69 H 93 10/30/20 20:29 64 16 166/77 H 93 Laboratory Results 10/31/20 10/31/20 10/30/20 Range/Units 07:08 07:08 22:15 WBC 13.99 H (4.8-10.8) K/uL RBC 4.27 (4.2-5.4) M/uL Hgb 12.5 (12.0-16.0) g/dL Hct 38.1 (37-47) % MCV 89.2 (80-100) fL MCH 29.3 (25-34) pg MCHC 32.8 (32-36) g/dL RDW Std Deviation 45.2 (36.4-46.3) fL RDW Coeff of Saturnino 13.7 (11.5-14.5) % Plt Count 182 (130-400) K/uL MPV 10.9 H (7.4-10.4) fL Immature Gran % (Auto) 0.1 % Neut % (Auto) 75.3 % Lymph % (Auto) 12.9 % Ellis % (Auto) 11.4 % Eos % (Auto) 0.2 % Baso % (Auto) 0.1 % Neut # (Auto) 10.52 H (1.4-6.5) K/uL Lymph # (Auto) 1.81 (1.2-3.4) K/uL Ellis # (Auto) 1.60 H (0.11-0.59) K/uL Eos # (Auto) 0.03 (0-0.5) K/uL Baso # (Auto) 0.01 (0-0.2) K/uL Immature Gran # (Auto) 0.02 (0.00-0.02) K/uL PT (9.0-12.0) Seconds INR (0.9-1.1) APTT (21.0-31.0) Seconds PTT Ratio Sodium 140 (136-145) mmol/L Potassium 3.5 (3.5-5.1) mmol/L Chloride 107 (98-107) mmol/L Carbon Dioxide 27 (21-32) mmol/L Anion Gap 6.0 (3-11) BUN 13 (7-18) mg/dl Creatinine 0.74 (0.6-1.2) mg/dl Est Cr Clr Drug Dosing 49.0 ml/min Est GFR ( Amer) 85.0 ml/min Est GFR (Non-Af Amer) 73.4 ml/min BUN/Creatinine Ratio 18.1 (10-20) Glucose 104 H (70-99) mg/dl Calcium 8.2 L (8.5-10.1) mg/dl Phosphorus 3.0 (2.5-4.9) mg/dl Magnesium 1.7 L (1.8-2.4) mg/dl Total Bilirubin (0.2-1) mg/dl AST (15-37) U/L ALT (12-78) U/L Alkaline Phosphatase (45-117) U/L Total Creatine Kinase (26-192) U/L Troponin I (0-0.045) ng/ml Total Protein (6.4-8.2) gm/dl Albumin (3.4-5.0) gm/dl Globulin (2.5-4.0) gm/dl Albumin/Globulin Ratio (0.9-2) TSH (0.300-4.500) uIu/ml Urine Color Yellow Urine Appearance Clear (Clear) Urine pH 5.0 (4.5-7.5) Ur Specific [place] 1.017 (1.000-1.030) Urine Protein Negative (Negative) Urine Glucose (UA) Negative (Negative) Urine Ketones Trace H (Negative) Urine Blood Negative (Negative) Urine Nitrite Negative (Negative) Urine Bilirubin Negative (Negative) Urine Urobilinogen Negative (Negative) Ur Leukocyte Esterase Negative (Negative) COVID-19 Eval Order SARS-CoV-2 (PCR) (Negative) Blood Type Antibody Screen 10/30/20 10/30/20 10/30/20 Range/Units 21:39 18:20 18:20 WBC (4.8-10.8) K/uL RBC (4.2-5.4) M/uL Hgb (12.0-16.0) g/dL Hct (37-47) % MCV (80-100) fL MCH (25-34) pg MCHC (32-36) g/dL RDW Std Deviation (36.4-46.3) fL RDW Coeff of Saturnino (11.5-14.5) % Plt Count (130-400) K/uL MPV (7.4-10.4) fL Immature Gran % (Auto) % Neut % (Auto) % Lymph % (Auto) % Ellis % (Auto) % Eos % (Auto) % Baso % (Auto) % Neut # (Auto) (1.4-6.5) K/uL Lymph # (Auto) (1.2-3.4) K/uL Ellis # (Auto) (0.11-0.59) K/uL Eos # (Auto) (0-0.5) K/uL Baso # (Auto) (0-0.2) K/uL Immature Gran # (Auto) (0.00-0.02) K/uL PT 10.0 (9.0-12.0) Seconds INR 1.0 (0.9-1.1) APTT 23.0 (21.0-31.0) Seconds PTT Ratio 0.9 Sodium 142 (136-145) mmol/L Potassium 3.6 (3.5-5.1) mmol/L Chloride 108 H (98-107) mmol/L Carbon Dioxide 27 (21-32) mmol/L Anion Gap 7.0 (3-11) BUN 16 (7-18) mg/dl Creatinine 1.00 (0.6-1.2) mg/dl Est Cr Clr Drug Dosing 36.3 ml/min Est GFR ( Amer) 59.1 ml/min Est GFR (Non-Af Amer) 51.0 ml/min BUN/Creatinine Ratio 15.9 (10-20) Glucose 108 H (70-99) mg/dl Calcium 9.0 (8.5-10.1) mg/dl Phosphorus (2.5-4.9) mg/dl Magnesium 1.9 (1.8-2.4) mg/dl Total Bilirubin 0.3 (0.2-1) mg/dl AST 13 L (15-37) U/L ALT 20 (12-78) U/L Alkaline Phosphatase 68 (45-117) U/L Total Creatine Kinase 87 (26-192) U/L Troponin I < 0.015 (0-0.045) ng/ml Total Protein 7.5 (6.4-8.2) gm/dl Albumin 3.8 (3.4-5.0) gm/dl Globulin 3.7 (2.5-4.0) gm/dl Albumin/Globulin Ratio 1.0 (0.9-2) TSH 1.210 (0.300-4.500) uIu/ml Urine Color Urine Appearance (Clear) Urine pH (4.5-7.5) Ur Specific [place] (1.000-1.030) Urine Protein (Negative) Urine Glucose (UA) (Negative) Urine Ketones (Negative) Urine Blood (Negative) Urine Nitrite (Negative) Urine Bilirubin (Negative) Urine Urobilinogen (Negative) Ur Leukocyte Esterase (Negative) COVID-19 Eval Order SARS-CoV-2 (PCR) (Negative) Blood Type O Positive Antibody Screen NEGATIVE 10/30/20 10/30/20 10/30/20 Range/Units 18:20 18:10 18:10 WBC 11.07 H (4.8-10.8) K/uL RBC 4.53 (4.2-5.4) M/uL Hgb 13.2 (12.0-16.0) g/dL Hct 40.5 (37-47) % MCV 89.4 (80-100) fL MCH 29.1 (25-34) pg MCHC 32.6 (32-36) g/dL RDW Std Deviation 44.7 (36.4-46.3) fL RDW Coeff of Saturnino 13.6 (11.5-14.5) % Plt Count 192 (130-400) K/uL MPV 11.0 H (7.4-10.4) fL Immature Gran % (Auto) 0.5 % Neut % (Auto) 80.9 % Lymph % (Auto) 11.8 % Ellis % (Auto) 6.2 % Eos % (Auto) 0.5 % Baso % (Auto) 0.1 % Neut # (Auto) 8.95 H (1.4-6.5) K/uL Lymph # (Auto) 1.31 (1.2-3.4) K/uL Ellis # (Auto) 0.69 H (0.11-0.59) K/uL Eos # (Auto) 0.06 (0-0.5) K/uL Baso # (Auto) 0.01 (0-0.2) K/uL Immature Gran # (Auto) 0.05 H (0.00-0.02) K/uL PT (9.0-12.0) Seconds INR (0.9-1.1) APTT (21.0-31.0) Seconds PTT Ratio Sodium (136-145) mmol/L Potassium (3.5-5.1) mmol/L Chloride (98-107) mmol/L Carbon Dioxide (21-32) mmol/L Anion Gap (3-11) BUN (7-18) mg/dl Creatinine (0.6-1.2) mg/dl Est Cr Clr Drug Dosing ml/min Est GFR ( Amer) ml/min Est GFR (Non-Af Amer) ml/min BUN/Creatinine Ratio (10-20) Glucose (70-99) mg/dl Calcium (8.5-10.1) mg/dl Phosphorus (2.5-4.9) mg/dl Magnesium (1.8-2.4) mg/dl Total Bilirubin (0.2-1) mg/dl AST (15-37) U/L ALT (12-78) U/L Alkaline Phosphatase (45-117) U/L Total Creatine Kinase (26-192) U/L Troponin I (0-0.045) ng/ml Total Protein (6.4-8.2) gm/dl Albumin (3.4-5.0) gm/dl Globulin (2.5-4.0) gm/dl Albumin/Globulin Ratio (0.9-2) TSH (0.300-4.500) uIu/ml Urine Color Urine Appearance (Clear) Urine pH (4.5-7.5) Ur Specific [place] (1.000-1.030) Urine Protein (Negative) Urine Glucose (UA) (Negative) Urine Ketones (Negative) Urine Blood (Negative) Urine Nitrite (Negative) Urine Bilirubin (Negative) Urine Urobilinogen (Negative) Ur Leukocyte Esterase (Negative) COVID-19 Eval Order Covid19 at [facility] SARS-CoV-2 (PCR) NEGATIVE (Negative) Blood Type Antibody Screen Diagnostic Findings Patient: PEACHEY,JOEL DAdmit Date: 10/30/20#: [id number]: 38 [facility][id number]: Date: 1935[facility] Zip: [place] [address]Kjh: 85Location: EDSex: FRoom/Bed:Att Phy:Diagnosis: FALL, HIP PAINPri Phy: Mariza Lord D.O.Service Date: 10/30/20Fa Phy:Interpreting Phy: Hanny Cole DOAdmit Phy: Ordering Phy: Ruel Augustin DO cc: ~ XR hip RT 2V w pelvis CLINICAL HISTORY: Fall. Right hip pain COMPARISON: December 22, 2017 DISCUSSION: There is comminuted intertrochanteric fracture of the right hip is seen with minimal impaction. No definite dislocation is seen. IMPRESSION: As above (1) Intertrochanteric fracture of right hip Encounter type: initial encounter Fracture alignment: displaced Fracture type: closed Qualified Code(s): S72.141A - Displaced intertrochanteric fracture of right femur, initial encounter for closed fracture
[2020-10-31] MEDS: CHOLECALCIFEROL 1,000 UNITS 25 MCG TAB PO SCH (10:56)
[2020-10-31] MEDS: MESALAMINE 250 MG CAPCR PO SCH ×3 (10:56→21:26)
--- NOTE | 2020-10-31 13:07 | Hospitalist Progress Note ---
Date of Service October 31, 2020 Assessment & Plan (1) Intertrochanteric fracture of right hip: Plan: Appreciate orthopedic input, patient will require IFN on the right Despite patient's advanced age, she is relatively healthy and has no significant risk factors to proceed with orthopedic surgery, acceptable to proceed as per orthopedics (2) Crohn disease: Plan: Continue Pentasa as ordered (3) HTN (hypertension): Plan: Continue verapamil 240 mg daily His blood pressure remains elevated, can consider additional agent (4) GERD (gastroesophageal reflux disease): Plan: Pantoprazole as ordered Admission and Anticipated Discharge Date Admission Date: October 30, 2020 Subjective Patient was seen and examined this morning, late entry. Patient tells me she is still having some pain in the right hip. She had not yet been seen by orthopedics at the time my evaluation but I do see their input in the chart now. Patient denies any systemic symptoms such as chest pain, shortness of breath, dyspnea on exertion, abdominal pain, fever or chills. Vital signs do show that she is hypertensive and I suspect this may be secondary to pain. Physical Exam Constitutional: cooperative; no acute distress Neck: trachea midline, no thyromegaly Respiratory: normal respiratory effort Auscultation: lungs clear to auscultation bilaterally; no crackles, no rales, no rhonchi and no wheezes Cardiovascular: Rate/Rhythm: regular rate and regular rhythm Heart Sounds: normal S1 and normal S2 Gastrointestinal (Abdomen): Inspection/Auscultation: abdomen normal to inspection Percussion/Palpation: abdomen soft; abdomen nontender, no guarding, abdomen not rigid and no hepatosplenomegaly Musculoskeletal: Right leg shortened. Good distal pulses bilaterally, both limbs well perfused Skin: no rashes, warm and dry Results & Data Results & Data ([facility]) Vital Signs (Past 12 Hours) Vital Signs Temp Pulse Resp BP Pulse Ox Pulse Ox 10/31/20 07:36 37.2 C 68 18 169/75 H 90 10/31/20 05:00 92 Laboratory Results Laboratory Results WBC 13.99 K/uL (4.8-10.8) H 10/31/20 07:08 RBC 4.27 M/uL (4.2-5.4) 10/31/20 07:08 Hgb 12.5 g/dL (12.0-16.0) 10/31/20 07:08 Hct 38.1 % (37-47) 10/31/20 07:08 MCV 89.2 fL (80-100) 10/31/20 07:08 MCH 29.3 pg (25-34) 10/31/20 07:08 MCHC 32.8 g/dL (32-36) 10/31/20 07:08 RDW Std Deviation 45.2 fL (36.4-46.3) 10/31/20 07:08 RDW Coeff of Saturnino 13.7 % (11.5-14.5) 10/31/20 07:08 Plt Count 182 K/uL (130-400) 10/31/20 07:08 MPV 10.9 fL (7.4-10.4) H 10/31/20 07:08 Immature Gran % (Auto) 0.1 % 10/31/20 07:08 Neut % (Auto) 75.3 % 10/31/20 07:08 Lymph % (Auto) 12.9 % 10/31/20 07:08 Mills % (Auto) 11.4 % 10/31/20 07:08 Eos % (Auto) 0.2 % 10/31/20 07:08 Baso % (Auto) 0.1 % 10/31/20 07:08 Neut # (Auto) 10.52 K/uL (1.4-6.5) H 10/31/20 07:08 Lymph # (Auto) 1.81 K/uL (1.2-3.4) 10/31/20 07:08 Mills # (Auto) 1.60 K/uL (0.11-0.59) H 10/31/20 07:08 Eos # (Auto) 0.03 K/uL (0-0.5) 10/31/20 07:08 Baso # (Auto) 0.01 K/uL (0-0.2) 10/31/20 07:08 Immature Gran # (Auto) 0.02 K/uL (0.00-0.02) 10/31/20 07:08 PT 10.0 Seconds (9.0-12.0) 10/30/20 18:20 INR 1.0 (0.9-1.1) 10/30/20 18:20 APTT 23.0 Seconds (21.0-31.0) 10/30/20 18:20 PTT Ratio 0.9 10/30/20 18:20 Sodium 140 mmol/L (136-145) 10/31/20 07:08 Potassium 3.5 mmol/L (3.5-5.1) 10/31/20 07:08 Chloride 107 mmol/L (98-107) 10/31/20 07:08 Carbon Dioxide 27 mmol/L (21-32) 10/31/20 07:08 Anion Gap 6.0 (3-11) 10/31/20 07:08 BUN 13 mg/dl (7-18) 10/31/20 07:08 Creatinine 0.74 mg/dl (0.6-1.2) 10/31/20 07:08 Est Cr Clr Drug Dosing 49.0 ml/min 10/31/20 07:08 Est GFR ( Amer) 85.0 ml/min 10/31/20 07:08 Est GFR (Non-Af Amer) 73.4 ml/min 10/31/20 07:08 BUN/Creatinine Ratio 18.1 (10-20) 10/31/20 07:08 Glucose 104 mg/dl (70-99) H 10/31/20 07:08 Calcium 8.2 mg/dl (8.5-10.1) L 10/31/20 07:08 Phosphorus 3.0 mg/dl (2.5-4.9) 10/31/20 07:08 Magnesium 1.7 mg/dl (1.8-2.4) L 10/31/20 07:08 Total Bilirubin 0.3 mg/dl (0.2-1) 10/30/20 18:20 AST 13 U/L (15-37) L 10/30/20 18:20 ALT 20 U/L (12-78) 10/30/20 18:20 Alkaline Phosphatase 68 U/L (45-117) 10/30/20 18:20 Total Creatine Kinase 87 U/L (26-192) 10/30/20 18:20 Troponin I < 0.015 ng/ml (0-0.045) 10/30/20 18:20 Total Protein 7.5 gm/dl (6.4-8.2) 10/30/20 18:20 Albumin 3.8 gm/dl (3.4-5.0) 10/30/20 18:20 Globulin 3.7 gm/dl (2.5-4.0) 10/30/20 18:20 Albumin/Globulin Ratio 1.0 (0.9-2) 10/30/20 18:20 TSH 1.210 uIu/ml (0.300-4.500) 10/30/20 18:20 Urine Color Yellow 10/30/20 22:15 Urine Appearance Clear (Clear) 10/30/20 22:15 Urine pH 5.0 (4.5-7.5) 10/30/20 22:15 Ur Specific [place] 1.017 (1.000-1.030) 10/30/20 22:15 Urine Protein Negative (Negative) 10/30/20 22:15 Urine Glucose (UA) Negative (Negative) 10/30/20 22:15 Urine Ketones Trace (Negative) H 10/30/20 22:15 Urine Blood Negative (Negative) 10/30/20 22:15 Urine Nitrite Negative (Negative) 10/30/20 22:15 Urine Bilirubin Negative (Negative) 10/30/20 22:15 Urine Urobilinogen Negative (Negative) 10/30/20 22:15 Ur Leukocyte Esterase Negative (Negative) 10/30/20 22:15 COVID-19 Eval Order Covid19 at [facility] 10/30/20 18:10 SARS-CoV-2 (PCR) NEGATIVE (Negative) 10/30/20 18:10 Blood Type O Positive 10/30/20 21:39 Antibody Screen NEGATIVE 10/30/20 21:39 Impressions Chest X-Ray 10/30/20 17:57 XR chest 1V portable CLINICAL HISTORY: weakness COMPARISON STUDY: January 30, 2013 FINDINGS: No pneumothorax. Minimal blunting of the left costophrenic angle is seen and might represent small left pleural effusion or pleural thickening. Eventration of the right hemidiaphragm appear more prominent since prior study in 2012. No large infiltrates or consolidative lesions are seen. Diffuse prominence of pulmonary interstitium is seen bilaterally. Cardiomediastinal silhouette is within normal limits in size. Aorta is tortuous and calcified. Interval development of a double density sign superimposed on the right cardiac silhouette which might represent enlargement of the left atrium or paraspinal lesion. No significant pulmonary vascular congestion.. Osseous structures: Osteopenia. Degenerative changes of the spine. IMPRESSION: 1. No large infiltrates or consolidative lesions. 2. Possible enlargement of the left atrium versus paraspinal lesion as detailed above. 3. Possible minimal left pleural effusion. 4. Diffuse prominence of pulmonary interstitium. 5. Atherosclerosis. ACT 112: Positive. There are findings on this exam that require communication between the performing entity and the patient following Patient Test Result Information Act ([place] Act 112) guidelines. The above report was generated using voice recognition software. It may contain grammatical, syntax or spelling errors. Electronically signed by: Hanny Cole DO 10/30/2020 6:55 PM Hip/Pelvis X-Ray 10/30/20 17:57 XR hip RT 2V w pelvis CLINICAL HISTORY: Fall. Right hip pain COMPARISON: December 22, 2017 DISCUSSION: There is comminuted intertrochanteric fracture of the right hip is seen with minimal impaction. No definite dislocation is seen. IMPRESSION: As above ACT 112: Negative or not required by law. The above report was generated using voice recognition software. It may contain grammatical, syntax or spelling errors. Electronically signed by: Hanny Cole DO 10/30/2020 6:[address] 10/30/20 19:29 CT chest diagnostic wo con CLINICAL HISTORY: eval for paraspinal lesion vs. atrial enlargement COMPARISON STUDY: No previous studies for comparison. CT DOSE: 183.52 mGy.cm TECHNIQUE: CT of the thorax was performed from the thoracic inlet to the lung bases. Images are reviewed in the axial, sagittal, and coronal planes. IV contrast was not administered for this examination. A dose lowering technique was utilized adhering to the principles of ALARA. FINDINGS: There is no axial, supra clavicle or internal mammary lymphadenopathy seen. Few mediastinal lymph nodes measure less than 1 cm in short axis which is nonpathological by CT size criteria. Thyroid: Heterogeneous appearance of visualized portion of thyroid gland with multiple ill-defined and partial calcified nodules within the right thyroid lobe. Esophagus is patulous. Thoracic aorta: The thoracic aorta is normal in course and caliber, noting standard 3 vessel arch anatomy. Heart: The heart is normal in size and configuration, without pericardial effusion. Severe coronary calcifications are seen. Lungs and pleural spaces: Tracheobronchial tree is patent. Few linear densities are seen within dependent portion of bilateral lower lobes. No large infiltrates or consolidative lesions are seen. There is elevation of the right hemidiaphragm and mild volume loss of the right hemithorax which is associated with mild midline shift to the right which could cause the mediastinal silhouette abnormalities which was seen on recent chest radiograph. No pleural effusion is seen. Upper abdomen: Partially visualized upper abdominal viscera is within normal limits. Skeletal structures: Diffuse osteopenia and multilevel degenerative changes of the spine. Multiple large Schmorl nodules are seen. Small compression fracture deformity of the T12 is seen. IMPRESSION: 1. Elevation of the right hemidiaphragm and volume loss on the right is seen with mild mediastinal shift to the right which could explain cardiomediastinal silhouette changes noted on recent chest radiograph. No evidence of paraspinal mass is seen. 2. Atelectasis at bilateral bases. 3. Heterogeneous appearance of thyroid gland with multiple small nodules on the right as detailed above. 4. Atherosclerosis. 5. The rest of findings as detailed above. ACT 112: Negative or not required by law. The above report was generated using voice recognition software. It may contain grammatical, syntax or spelling errors. Electronically signed by: Hanny Cole DO 10/30/2020 9:40 PM PG Care Time/CCT Total # of Minutes Spent Total Time Spent with Patient: Total time spent is greater than 50% in coordination of care (as documented) at patient's floor/unit and/or counseling patient: Coding Level of Care Code 56180 Subseq Hosp Care Lvl 2 Diagnoses Crohn disease K50.90 HTN (hypertension) I10 Intertrochanteric fracture of right hip S72.141A Encounter type: initial encounter Fracture alignment: displaced Fracture type: closed GERD (gastroesophageal reflux disease) K21.9 (1) Intertrochanteric fracture of right hip Encounter type: initial encounter Fracture alignment: displaced Fracture type: closed Qualified Code(s): S72.141A - Displaced intertrochanteric fracture of right femur, initial encounter for closed fracture
--- NOTE | 2020-10-31 13:43 | History & Physical Bridge Note ---
Date of Service October 31, 2020 History & Physical Bridge Note I have examined the patient, reviewed the History & Physical and in the interval since the performance of the History & Physical I have noted the following changes of clinical significance: no changes noted
[2020-10-31] MEDS ORDERED: CLINDAMYCIN 600 MG/54 ML D5W IV ONE (14:00)
[2020-10-31] MEDS ORDERED: PROPOFOL IV EMULSION 10 MG/ML 20 ML VIAL IV ONE (14:19)
[2020-10-31] MEDS ORDERED: LIDOCAINE 2% 2 ML VIAL/AMP(20MG/ML) INFIL ONE (14:19)
[2020-10-31] MEDS ORDERED: MIDAZOLAM HCL 1 MG/ML 2ML VIAL ONE (14:19)
[2020-10-31] MEDS ORDERED: fentaNYL citrate 100 MCG/2 ML VIAL ONE (14:19)
[2020-10-31] MEDS ORDERED: BUPIVACAINE/EPINEPHRINE 0.5% MPF 1:200,000 30 ML VIAL ONE (14:32)
[2020-10-31] MEDS ORDERED: PHENYLEPHRINE 100MCG/ML 5ML SYR ONE (15:23)
[2020-10-31] MEDS ORDERED: ePHEDrine sulfate 50 MG/ML AMP ONE (15:23)
--- NOTE | 2020-10-31 15:32 | Electrocardiogram Report ---
Test Reason : Blood Pressure : / mmHG Vent. Rate : 072 BPM Atrial Rate : 072 BPM P-R Int : 164 ms QRS Dur : 134 ms QT Int : 454 ms P-R-T Axes : 061 -35 032 degrees QTc Int : 497 ms Poor data quality, interpretation may be adversely affected Sinus rhythm with occasional Premature ventricular complexes Left axis deviation Right bundle branch block Abnormal ECG When compared with ECG of 25-APR-2007 01:13, Premature ventricular complexes are now Present QRS axis Shifted left Confirmed by Ruel Cronin ([id number]) on 10/31/2020 3:31:58 PM Referred By: REFERRED SELF Confirmed By:Ruel Cronin
--- NOTE | 2020-10-31 15:47 | Operative Report ---
Post Operative Report Pre & Post Diagnosis Intertrochanteric hip fracture right hip Postop intertrochanteric hip fracture right hip Operation Date: 10/31/20 10:55 <No data on this case meets the specified criteria> I identified the patient and participated in the time-out.: Yes Procedure Right hip IM troches nail utilizing standard nail 90 mm screw 5 x 36 distal locking screw Operation Date: 10/31/20 10:55 <No data on this case meets the specified criteria> Surgeon Rajesh Bowen DO [address] Estimated Blood Loss 5 Findings Consistent with Post-Op Diagnosis Patient presents with an intertrochanteric fracture right hip Specimens None Drains None Anesthesia Type Spinal Complications none Disposition Accompanied Patient To Recovery: No Disposition: Recovery Room Indications Patient presents with intertrochanteric hip fracture right hip for IM nail fixation Description of Procedure Initiation of spinal anesthesia the right hip was subsequently prepped and draped in fracture table the fracture was visualized under fluoroscopic guidance it was brought out to length and was reduced into anatomic position both AP and lateral planes socially after proper prepping and draping incision made over the region of the greater trochanter utilizing a intramedullary drill bit the larger reamer was then placed to open the proximal canal this was checked in both AP and lateral planes to make sure that it was in the central portion of the femoral shaft subsequently a 10mm standard nail was brought onto the field was placed over the guidewire was checked again on both AP and lateral planes a 90mm screw tract was drilled into the femoral neck and head special attention paid not to penetrate subchondral bone wound was irrigated subsequently the screw was placed the wound was irrigated with sterile saline solution and utilizing the standard guide the distal screw which was a 5 mm x 36 length screw was placed under fluoroscopic guidance was checked to make sure it was through the zan the guide device was removed the wound was irrigated deep fascia closed with 2-0 Vicryl sub she was closed with 3-0 Vicryl skin was closed with skin clips sterile compressive dressings placed patient was taken recovery in stable condition stop report dictated by Andrés please note YENIFER Gan was necessary prepping draping retraction wound closure of deep fascia subcu and skin was necessary for the case I attest to the content of the Intraoperative Record and any orders documented therein. Any exceptions are noted below.
--- NOTE | 2020-10-31 15:52 | Fluoroscopy Report ---
FL hip RT 2-3V CLINICAL HISTORY: RT TROCH NAIL COMPARISON STUDY: Pelvis and right hip radiographs October 30, 2020. FLUOROSCOPY TIME: 43 seconds. FLUOROSCOPIC IMAGES: 2 FINDINGS: Fluoroscopy was provided for placement of a right trochanteric nail with interlocking intra medullary zan and distal screw. Hardware fixates the intertrochanteric fracture of the right femur. F racture alignment appears anatomic. There are no unexpected radiopaque foreign bodies. IMPRESSION: Fluoroscopy provided during internal fixation of the intertrochanteric fracture of the r ight femur with trochanteric nail. ACT 112: Negative or not required by law. Electronically signed by: Ranjith Butcher M.D. 10/31/2020 3:51 PM
--- NOTE | 2020-10-31 16:31 | Anesthesiology Progress Note ---
Date of Service October 31, 2020 Anesthesia Post Procedure Vital Signs Vital Signs: Temp Pulse Pulse Pulse Resp BP BP 10/31/20 16:20 67 16 119/56 L 10/31/20 16:10 62 20 117/58 L 10/31/20 16:00 36.5 C 66 20 103/42 L 10/31/20 13:33 36.8 C 76 20 10/31/20 07:36 37.2 C 68 18 10/31/20 05:00 10/31/20 01:00 10/31/20 00:56 36.6 C 78 14 10/30/20 21:26 36.7 C 70 19 10/30/20 20:29 64 16 10/30/20 19:27 67 16 10/30/20 18:03 36.9 C 74 16 186/102 H BP Pulse Ox Pulse Ox 10/31/20 16:20 99 10/31/20 16:10 100 10/31/20 16:00 97 10/31/20 13:33 174/94 H 95 10/31/20 07:36 169/75 H 90 10/31/20 05:00 92 10/31/20 01:00 91 10/31/20 00:56 92 10/30/20 21:26 186/69 H 93 10/30/20 20:29 166/77 H 93 10/30/20 19:27 176/81 H 93 10/30/20 18:03 96 Pain Intensity Right Hip: Pain Intensity: 1 Transfer of Care Handoff Completed per policy Notes Mental Status: alert / awake / arousable Patient Amnestic to Procedure: Yes Nausea / Vomiting: adequately controlled Pain: adequately controlled Airway Patency, RR, SpO2: stable & adequate BP & HR: stable & adequate Hydration State: stable & adequate Neuraxial Anesthesia: was administered and sensory block is resolving Anesthetic Complications: no major complications apparent and Pt Satisfied with anesthetic care
[2020-10-31] MEDS ORDERED: NALOXONE HCL 0.4 MG/1 ML VIAL/CARP IV PRN (16:47)
[2020-10-31] MEDS: LACTATED RINGER'S 1,000 ML IV SCH (18:13)
[2020-10-31] MEDS: ESCITALOPRAM OXALATE 10 MG TAB PO SCH (21:26)
[2020-10-31] MEDS: DOCUSATE SODIUM/SENNA 50/8.6MG TAB PO SCH (21:26)
[2020-10-31] MEDS: CLINDAMYCIN 600 MG in DEXTROSE 5% 50 ML IV SCH (21:29)
--- NOTE | 2020-11-01 01:51 | Billing Data ---
Date of Service November 01, 2020 Coding Level of Care Code 98636 Initial Inpt Care Lvl 3
[2020-11-01] MEDS: CLINDAMYCIN 600 MG in DEXTROSE 5% 50 ML IV SCH (05:40)
[2020-11-01] MEDS: PANTOprazole 40 MG TAB PO SCH (05:40)
--- NOTE | 2020-11-01 08:31 | Orthopedic Progress Note ---
Date of Service November 01, 2020 Assessment & Plan (1) Intertrochanteric fracture of right hip: Plan: Postop day 1 status post right TFN Confusion-[place] secondary to pain medications/surgery. PT/OT protocols to start today if patient able. DVT prophylaxis-TESSY Lawson. Consider enoxaparin and/or heparin subcu if okay with medical service DC planning-patient will likely need rehab versus assisted facility prior to returning home. We will see how she progresses with her physical therapy and confusion. Admission and Anticipated Discharge Date Admission Date: October 30, 2020 Subjective Postop day 1 Patient currently lying in bed. She is trying to make a phone call on her call [employer]. She is pleasant but obviously confused. She denies any shortness of breath or chest pain at this time. She states that her operative hip is not bothering her at this time Physical Exam Physical Exam: , Dry, and intact. Thigh is soft but nontender. Swelling noted consistent with surgery. Calves are soft nontender. She has good dorsiflexion plantarflexion of the right foot. Neurovascular intact. Results & Data ([facility]) Vital Signs (Past 12 Hours) Vital Signs Temp Pulse Resp BP Pulse Ox 11/01/20 07:37 37.5 C 85 17 152/69 H 92 11/01/20 04:27 36.4 C L 88 18 164/72 H 90 10/31/20 22:39 36.6 C 87 18 166/79 H 93 (1) Intertrochanteric fracture of right hip Encounter type: initial encounter Fracture alignment: displaced Fracture type: closed Qualified Code(s): S72.141A - Displaced intertrochanteric fracture of right femur, initial encounter for closed fracture
[2020-11-01] MEDS: LORazepam 0.5 MG TAB PO SCH ×3 (09:54→21:51)
[2020-11-01] MEDS: VERAPAMIL HCL 240 MG TABCR PO SCH (09:54)
[2020-11-01] MEDS: CHOLECALCIFEROL 1,000 UNITS 25 MCG TAB PO SCH (09:54)
[2020-11-01] MEDS: CYANOCOBALAMIN 500 MCG TABLET (VITAMIN B-12) PO SCH (09:55)
[2020-11-01] MEDS: MESALAMINE 250 MG CAPCR PO SCH ×3 (09:55→21:51)
[2020-11-01] MEDS: FOLIC ACID 1 MG TAB PO SCH (09:55)
[2020-11-01 11:00] LABS: Basophils # (auto) 0.01 K/uL (0-0.2); Basophils % (auto) 0.1 %; Hematocrit (blood only) 37.3 % (37-47); Hemoglobin 12.2 g/dL (12.0-16.0); Immature Granulocytes # (auto) 0.08 K/uL (0.00-0.02); Immature Granulocytes % (auto) 0.4 %; Lymphocytes # (auto) 1.05 K/uL (1.2-3.4); Lymphocytes % (auto) 5.8 %; Mean Corpuscular Hemoglobin 29.1 pg (25-34); Mean Corpuscular Hgb Conc 32.7 g/dL (32-36); Mean Platelet Volume 11.1 fL (7.4-10.4); Monocytes # (auto) 2.01 K/uL (0.11-0.59); Monocytes % (auto) 11.1 %; Neutrophils # (auto) 14.97 K/uL (1.4-6.5); Neutrophils % (auto) 82.6 %; Platelet Count 182 K/uL (130-400); RDW Coefficient of Variation 13.5 % (11.5-14.5); RDW Standard Deviation 44.3 fL (36.4-46.3); Red Blood Count 4.19 M/uL (4.2-5.4); White Blood Count 18.12 K/uL (4.8-10.8)
[2020-11-01 11:33] LABS: BUN Creatinine Ratio 12.6 (10-20); Calcium 8.3 mg/dl (8.5-10.1); Creatinine Clr Calc Pharmacy 45.3 ml/min; Est GFR (African American) 77.4 ml/min; Est GFR (Non-African American) 66.8 ml/min; Potassium 3.1 mmol/L (3.5-5.1)
[2020-11-01] MEDS: LACTATED RINGER'S 1,000 ML IV SCH (12:20)
[2020-11-01] MEDS ORDERED: POTASSIUM CHLORIDE CRTAB 20 MEQ TABCR PO STA (16:29)
[2020-11-01] MEDS ORDERED: ACETAMINOPHEN 325 MG TAB PO PRN (17:47)
--- NOTE | 2020-11-01 18:26 | Hospitalist Progress Note ---
Date of Service November 01, 2020 Assessment & Plan (1) Intertrochanteric fracture of right hip: Plan: Kimberlyn is an 85-year-old female with a notable past medical history of hypertension, Crohn's disease status post resection, and anxiety who presents today for right hip pain. Kimberlyn says she was at home on her front porch, walking up a step when she fell on her right side and hit her hip, subsequently found to have an intertrochanteric fracture involving the RIGHT hip. Right Intertrochanteric Fracture In the setting of mechanical fall onto right side/hip X-ray of right hip demonstrating commuted intertrochanteric fracture with min imal impaction -Appreciate orthopedics management of this, POD#1 s/p right TFN -CPK WNL Left atrial enlargement versus paraspinal lesion Chest x-ray revealing for mediastinal/retromediastinal enlargement, suggestive of possible atrial enlargement versus paraspinal mass In setting of fracture, as well as potential procedure, proceed with CT of the chest with focus on spine and right atrium for further characterization ECG revealing for left axis deviation and right bundle branch block, no significant hypertrophy Pending results of study, can consider further imaging studies (e.g., echocardiography) versus consultation as needed Anxiety Stable at present Continue Ativan 0.5 mg 3 times daily; of note, I confirmed with patient that this is what she takes at home, she does not take it as needed, she takes it scheduled Hypertension Continue verapamil to 240 mg every morning Crohn's disease Status post resection Stable for many years, continue mesalamine Dispo: [place] PPX: SCDs, chemical prophylaxis discussed and deferred to orthopedics FEN/GI: Now eating and drinking well can discontinue further IV fluids Code: FULL CODE (2) HTN (hypertension): (3) Crohn disease: Admission and Anticipated Discharge Date Admission Date: October 30, 2020 Subjective Doing well post operatively. Reports no pain at rest but avoiding movement due to pain. Has been up in the chair today. Eating and drinking well. Had BM earlier today. Reportedly confused earlier today but appears to have resolved this afternoon. Likely secondary to morphine previously given (none since ). Review of Systems Review of Systems: All systems reviewed & are unremarkable except as noted in HPI & below Physical Exam Constitutional: cooperative; no acute distress Neck: trachea midline, no thyromegaly Respiratory: normal respiratory effort Auscultation: lungs clear to auscultation bilaterally; no crackles, no rales, no rhonchi and no wheezes Cardiovascular: Rate/Rhythm: regular rate and regular rhythm Heart Sounds: normal S1 and normal S2 Gastrointestinal (Abdomen): Inspection/Auscultation: abdomen normal to inspection Percussion/Palpation: abdomen soft; abdomen nontender, no guarding, abdomen not rigid and no hepatosplenomegaly Musculoskeletal: NV intact distal to op site. Poor dorsiflexion on right foot but limited by joint not strength and equal to left side. Skin: no rashes, warm and dry Results & Data Results & Data ([facility]) Vital Signs (Past 12 Hours) Vital Signs Temp Pulse Resp BP Pulse Ox 11/01/20 15:48 36.6 C 72 16 121/59 L 91 11/01/20 07:37 37.5 C 85 17 152/69 H 92 PG Care Time/CCT Total # of Minutes Spent Total Time Spent with Patient: Total time spent is greater than 50% in coordination of care (as documented) at patient's floor/unit and/or counseling patient: Coding Level of Care Code 28682 Subseq Hosp Care Lvl 2 Diagnoses Intertrochanteric fracture of right hip S72.141A Encounter type: initial encounter Fracture alignment: displaced Fracture type: closed HTN (hypertension) I10 Crohn disease K50.90 (1) Intertrochanteric fracture of right hip Encounter type: initial encounter Fracture alignment: displaced Fracture type: closed Qualified Code(s): S72.141A - Displaced intertrochanteric fracture of right femur, initial encounter for closed fracture
[2020-11-01] MEDS: ESCITALOPRAM OXALATE 10 MG TAB PO SCH (21:51)
[2020-11-01] MEDS: DOCUSATE SODIUM/SENNA 50/8.6MG TAB PO SCH (21:51)
[2020-11-02] MEDS: PANTOprazole 40 MG TAB PO SCH (06:29)
[2020-11-02] MEDS ORDERED: traMADol HCL 50 MG TABLET PO PRN (07:58)
[2020-11-02] MEDS: CYANOCOBALAMIN 500 MCG TABLET (VITAMIN B-12) PO SCH (08:19)
[2020-11-02] MEDS: FOLIC ACID 1 MG TAB PO SCH (08:20)
[2020-11-02] MEDS: VERAPAMIL HCL 240 MG TABCR PO SCH (08:20)
[2020-11-02] MEDS: ACETAMINOPHEN 500 MG TAB PO SCH ×3 (08:31→21:41)
[2020-11-02] MEDS: LORazepam 0.5 MG TAB PO SCH ×3 (08:32→21:41)
[2020-11-02] MEDS: ENOXAPARIN INJ 30 MG/0.3 ML SYR SQ SCH (10:06)
[2020-11-02] MEDS: CHOLECALCIFEROL 1,000 UNITS 25 MCG TAB PO SCH (10:06)
[2020-11-02] MEDS: MESALAMINE 250 MG CAPCR PO SCH ×3 (10:06→21:41)
--- NOTE | 2020-11-02 10:33 | Orthopedic Progress Note ---
Date of Service November 02, 2020 Assessment & Plan (1) Intertrochanteric fracture of right hip: Plan: Postop day 1 status post right TFN Confusion-appears to be somewhat better today. PT/OT protocols to start today if patient able. Weightbearing as tolerated DVT prophylaxis-TESSY Lawson. Enoxaparin 30 mg subcu daily Leukocytosis-as per medicine service. Afebrile, wounds appearing benign. Hypokalemia-replete as per medicine service. DC planning-patient will likely need rehab versus care home facility prior to returning home. We will see how she progresses with her physical therapy and confusion. Admission and Anticipated Discharge Date Admission Date: October 30, 2020 Subjective Postop day 2 Patient currently sitting up in a chair at the bedside. Nursing is present states that she is a maximum 2 person assist at this time getting in and out of bed. Patient seems a little less confused this morning and is pleasant. She states that her hip bothers her whenever she is trying to move but it is controlled pain at rest. No other complaints at this time. Physical Exam Physical Exam: Incisions appear benign. Small amount of scant serous drainage. Thigh is mildly swollen but soft and nontender. Calves are soft nontender. Neurovascular intact. Results & Data ([facility]) Vital Signs (Past 12 Hours) Vital Signs Temp Pulse Resp BP Pulse Ox 11/02/20 07:38 36.7 C 80 22 170/77 H 92 11/01/20 22:46 36.8 C 77 18 151/63 H 96 Laboratory Results 11/01/20 11/01/20 Range/Units 10:42 10:42 WBC 18.12 H (4.8-10.8) K/uL RBC 4.19 L (4.2-5.4) M/uL Hgb 12.2 (12.0-16.0) g/dL Hct 37.3 (37-47) % MCV 89.0 (80-100) fL MCH 29.1 (25-34) pg MCHC 32.7 (32-36) g/dL RDW Std Deviation 44.3 (36.4-46.3) fL RDW Coeff of Saturnino 13.5 (11.5-14.5) % Plt Count 182 (130-400) K/uL MPV 11.1 H (7.4-10.4) fL Immature Gran % (Auto) 0.4 % Neut % (Auto) 82.6 % Lymph % (Auto) 5.8 % [place] % (Auto) 11.1 % Eos % (Auto) 0.0 % Baso % (Auto) 0.1 % Neut # (Auto) 14.97 H (1.4-6.5) K/uL Lymph # (Auto) 1.05 L (1.2-3.4) K/uL Valencia # (Auto) 2.01 H (0.11-0.59) K/uL Eos # (Auto) 0.00 (0-0.5) K/uL Baso # (Auto) 0.01 (0-0.2) K/uL Immature Gran # (Auto) 0.08 H (0.00-0.02) K/uL Sodium 135 L (136-145) mmol/L Potassium 3.1 L (3.5-5.1) mmol/L Chloride 102 (98-107) mmol/L Carbon Dioxide 28 (21-32) mmol/L Anion Gap 5.0 (3-11) BUN 10 (7-18) mg/dl Creatinine 0.80 (0.6-1.2) mg/dl Est Cr Clr Drug Dosing 45.3 ml/min Est GFR ( Amer) 77.4 ml/min Est GFR (Non-Af Amer) 66.8 ml/min BUN/Creatinine Ratio 12.6 (10-20) Glucose 161 H (70-99) mg/dl Calcium 8.3 L (8.5-10.1) mg/dl (1) Intertrochanteric fracture of right hip Encounter type: initial encounter Fracture alignment: displaced Fracture type: closed Qualified Code(s): S72.141A - Displaced intertrochanteric fracture of right femur, initial encounter for closed fracture
--- NOTE | 2020-11-02 13:22 | Hospitalist Progress Note ---
Date of Service November 02, 2020 Assessment & Plan (1) Intertrochanteric fracture of right hip: Plan: Kimberlyn is an 85-year-old female with a notable past medical history of hypertension, Crohn's disease status post resection, and anxiety who presents today for right hip pain. Kimberlyn says she was at home on her front porch, walking up a step when she fell on her right side and hit her hip, subsequently found to have an intertrochanteric fracture involving the RIGHT hip. Right Intertrochanteric Fracture In the setting of mechanical fall onto right side/hip X-ray of right hip demonstrating commuted intertrochanteric fracture with min imal impaction -Appreciate orthopedics management of this, POD#1 s/p right TFN -CPK WNL Left atrial enlargement versus paraspinal lesion Chest x-ray revealing for mediastinal/retromediastinal enlargement, suggestive of possible atrial enlargement versus paraspinal mass In setting of fracture, as well as potential procedure, proceed with CT of the chest with focus on spine and right atrium for further characterization ECG revealing for left axis deviation and right bundle branch block, no significant hypertrophy Pending results of study, can consider further imaging studies (e.g., echocardiography) versus consultation as needed Anxiety Stable at present Continue Ativan 0.5 mg 3 times daily; of note, I confirmed with patient that this is what she takes at home, she does not take it as needed, she takes it scheduled Hypertension Continue verapamil to 240 mg every morning Crohn's disease Status post resection Stable for many years, continue mesalamine Dispo: [place] PPX: SCDs, Lovenox FEN/GI: Regular diet Code: FULL CODE Medically stable for discharge at the current time (2) HTN (hypertension): (3) Crohn disease: Admission and Anticipated Discharge Date Admission Date: October 30, 2020 Subjective Out of bed today. Pain under control. No events overnight. No acute concerns or questions. Review of Systems Review of Systems: All systems reviewed & are unremarkable except as noted in HPI & below Physical Exam Constitutional: cooperative; no acute distress Neck: trachea midline, no thyromegaly Respiratory: normal respiratory effort Auscultation: lungs clear to auscultation bilaterally; no crackles, no rales, no rhonchi and no wheezes Cardiovascular: Rate/Rhythm: regular rate and regular rhythm Heart Sounds: normal S1 and normal S2 Gastrointestinal (Abdomen): Inspection/Auscultation: abdomen normal to inspection Percussion/Palpation: abdomen soft; abdomen nontender, no guarding, abdomen not rigid and no hepatosplenomegaly Skin: no rashes, warm and dry Results & Data Results & Data ([facility]) Vital Signs (Past 12 Hours) Vital Signs Temp Pulse Resp BP Pulse Ox 11/02/20 07:38 36.7 C 80 22 170/77 H 92 PG Care Time/CCT Total # of Minutes Spent Total Time Spent with Patient: Total time spent is greater than 50% in coordination of care (as documented) at patient's floor/unit and/or counseling patient: Coding Level of Care Code 12638 Subseq Hosp Care Lvl 1 Diagnoses Intertrochanteric fracture of right hip S72.141A Encounter type: initial encounter Fracture alignment: displaced Fracture type: closed HTN (hypertension) I10 Crohn disease K50.90 (1) Intertrochanteric fracture of right hip Encounter type: initial encounter Fracture alignment: displaced Fracture type: closed Qualified Code(s): S72.141A - Displaced intertrochanteric fracture of right femur, initial encounter for closed fracture
[2020-11-02] MEDS: ESCITALOPRAM OXALATE 10 MG TAB PO SCH (21:42)
[2020-11-02] MEDS: DOCUSATE SODIUM/SENNA 50/8.6MG TAB PO SCH (21:42)
[2020-11-03] MEDS: PANTOprazole 40 MG TAB PO SCH (05:08)
[2020-11-03] MEDS: ENOXAPARIN INJ 30 MG/0.3 ML SYR SQ SCH (07:57)
[2020-11-03] MEDS: CYANOCOBALAMIN 500 MCG TABLET (VITAMIN B-12) PO SCH (08:38)
[2020-11-03] MEDS: LORazepam 0.5 MG TAB PO SCH ×3 (08:38→21:45)
[2020-11-03] MEDS: FOLIC ACID 1 MG TAB PO SCH (08:38)
[2020-11-03] MEDS: ACETAMINOPHEN 500 MG TAB PO SCH ×3 (08:38→21:53)
[2020-11-03] MEDS: VERAPAMIL HCL 240 MG TABCR PO SCH (08:38)
--- NOTE | 2020-11-03 08:53 | Orthopedic Progress Note ---
Date of Service November 03, 2020 Assessment & Plan (1) Intertrochanteric fracture of right hip: Plan: Postop day 3 status post right TFN Confusion- appears resolved PT/OT protocols to start today if patient able. Weightbearing as tolerated DVT prophylaxis-TESSY Lawson. Enoxaparin 30 mg subcu daily Leukocytosis-as per medicine service. Afebrile, wounds appearing benign. Hypokalemia-replete as per medicine service. DC planning-patient will likely need rehab versus fdc facility prior to returning home. We will see how she progresses with her physical therapy and confusion. ORTHO WILL SIGN OFF AT THIS TIME. INSTRUCTIONS PLACED IN DC SECTION. PLEASE CALL WITH ANY QUESTIONS. Admission and Anticipated Discharge Date Admission Date: October 30, 2020 Subjective POD 3 Pt sitting up in chair at bedside eating breakfast. Answering questions appropriately. Does not seem confused this AM. States she will be going to a SNF prior to going home. No new complaints. Pain controlled presently. Physical Exam Physical Exam: New dressing has been applied. Very mild erythema near the distal incision. No overt drainage noted. Calves soft, NT. NV intact. Toes mobile. Results & Data ([facility]) Vital Signs (Past 12 Hours) Vital Signs Temp Pulse Resp BP Pulse Ox 11/03/20 07:34 36.7 C 83 18 172/74 H 91 11/02/20 21:58 36.3 C L 77 16 148/73 H 93 (1) Intertrochanteric fracture of right hip Encounter type: initial encounter Fracture alignment: displaced Fracture type: closed Qualified Code(s): S72.141A - Displaced intertrochanteric fracture of right femur, initial encounter for closed fracture
[2020-11-03 09:23] LABS: Hematocrit (blood only) 35.1 % (37-47); Hemoglobin 11.5 g/dL (12.0-16.0); Mean Corpuscular Hemoglobin 28.9 pg (25-34); Mean Corpuscular Hgb Conc 32.8 g/dL (32-36); Mean Corpuscular Volume 88.2 fL (80-100); Mean Platelet Volume 11.5 fL (7.4-10.4); Platelet Count 198 K/uL (130-400); RDW Coefficient of Variation 13.5 % (11.5-14.5); RDW Standard Deviation 44.2 fL (36.4-46.3); Red Blood Count 3.98 M/uL (4.2-5.4); White Blood Count 14.75 K/uL (4.8-10.8)
[2020-11-03 09:44] LABS: BUN Creatinine Ratio 17.1 (10-20); Calcium 8.7 mg/dl (8.5-10.1); Creatinine Clr Calc Pharmacy 45.3 ml/min; Est GFR (African American) 77.4 ml/min; Est GFR (Non-African American) 66.8 ml/min; Potassium 3.2 mmol/L (3.5-5.1)
[2020-11-03] MEDS: MESALAMINE 250 MG CAPCR PO SCH ×3 (10:18→21:45)
[2020-11-03] MEDS: CHOLECALCIFEROL 1,000 UNITS 25 MCG TAB PO SCH (10:18)
[2020-11-03] MEDS ORDERED: POTASSIUM CHLORIDE CRTAB 20 MEQ TABCR PO ONE (14:24)
--- NOTE | 2020-11-03 14:26 | Hospitalist Progress Note ---
Date of Service November 03, 2020 Assessment & Plan (1) Intertrochanteric fracture of right hip: Plan: Kimberlyn is an 85-year-old female with a notable past medical history of hypertension, Crohn's disease status post resection, and anxiety who presents today for right hip pain. Kimberlyn says she was at home on her front porch, walking up a step when she fell on her right side and hit her hip, subsequently found to have an intertrochanteric fracture involving the RIGHT hip. Right Intertrochanteric Fracture In the setting of mechanical fall onto right side/hip X-ray of right hip demonstrating commuted intertrochanteric fracture with min imal impaction -Appreciate orthopedics pain and VTE management, POD#3 s/p right TFN -CPK WNL -Remove ramos cath Left atrial enlargement versus paraspinal lesion CT of chest shows schmorl's nodules only Anxiety Stable at present Continue Ativan 0.5 mg 3 times daily; of note, I confirmed with patient that this is what she takes at home, she does not take it as needed, she takes it scheduled Hypertension Continue verapamil to 240 mg every morning Crohn's disease Status post resection Stable for many years, continue mesalamine Dispo: [place] PPX: SCDs, Lovenox FEN/GI: Regular diet Code: FULL CODE Medically stable for discharge at the current time, but will trial without catheter prior to discharge (2) HTN (hypertension): (3) Crohn disease: Admission and Anticipated Discharge Date Admission Date: October 30, 2020 Subjective No acute events overnight. Ramos catheter still in place. Out of bed a mobile this morning but back in bed sleeping when seen mid afternoon. Review of Systems Review of Systems: All systems reviewed & are unremarkable except as noted in HPI & below Physical Exam Constitutional: well developed and well nourished; no acute distress Neck: trachea midline, no thyromegaly Respiratory: normal respiratory effort Auscultation: lungs clear to auscultation bilaterally; no crackles, no rales, no rhonchi and no wheezes Cardiovascular: Rate/Rhythm: regular rate and regular rhythm Heart Sounds: normal S1 and normal S2 Extremities: no pedal edema Gastrointestinal (Abdomen): Percussion/Palpation: abdomen soft; abdomen nontender, no guarding, abdomen not rigid and no hepatosplenomegaly Musculoskeletal: NV intact distal to operation site. Calves SNT Skin: no rashes, warm and dry Results & Data Results & Data ([facility]) Vital Signs (Past 12 Hours) Vital Signs Temp Pulse Resp BP Pulse Ox 11/03/20 07:34 36.7 C 83 18 172/74 H 91 PG Care Time/CCT Total # of Minutes Spent Total Time Spent with Patient: Total time spent is greater than 50% in coordination of care (as documented) at patient's floor/unit and/or counseling patient: Coding Level of Care Code 38577 Subseq Hosp Care Lvl 1 Diagnoses Intertrochanteric fracture of right hip S72.141A Encounter type: initial encounter Fracture alignment: displaced Fracture type: closed HTN (hypertension) I10 Crohn disease K50.90 (1) Intertrochanteric fracture of right hip Encounter type: initial encounter Fracture alignment: displaced Fracture type: closed Qualified Code(s): S72.141A - Displaced intertrochanteric fracture of right femur, initial encounter for closed fracture
[2020-11-03] MEDS: DOCUSATE SODIUM/SENNA 50/8.6MG TAB PO SCH (21:45)
[2020-11-03] MEDS: ESCITALOPRAM OXALATE 10 MG TAB PO SCH (21:45)
[2020-11-04] MEDS: PANTOprazole 40 MG TAB PO SCH (05:22)
[2020-11-04] MEDS ORDERED: ONDANSETRON 4 MG OD TAB PO PRN (08:36)
[2020-11-04] MEDS: VERAPAMIL HCL 240 MG TABCR PO SCH (09:17)
[2020-11-04] MEDS: CYANOCOBALAMIN 500 MCG TABLET (VITAMIN B-12) PO SCH (09:17)
[2020-11-04] MEDS: FOLIC ACID 1 MG TAB PO SCH (09:17)
[2020-11-04] MEDS: MESALAMINE 250 MG CAPCR PO SCH (09:17)
[2020-11-04] MEDS: LORazepam 0.5 MG TAB PO SCH ×2 (09:17→15:07)
[2020-11-04] MEDS: CHOLECALCIFEROL 1,000 UNITS 25 MCG TAB PO SCH (09:17)
[2020-11-04] MEDS: ENOXAPARIN INJ 30 MG/0.3 ML SYR SQ SCH (09:17)
[2020-11-04] MEDS: ACETAMINOPHEN 500 MG TAB PO SCH ×2 (09:22→15:07)
--- NOTE | 2020-11-04 14:51 | Discharge Summary ---
Date of Service November 04, 2020 Admission HPI Per Admitting Provider Kimberlyn is an 85-year-old female with a notable past medical history of hypertension, Crohn's disease status post resection, and anxiety who presents today for right hip pain. Kimberlyn says she was at home on her front porch, walking up a step when she fell on her right side and hit her hip. She felt pain immediately, but denies hitting her head or loss of consciousness. She said that she laid on the ground for almost an hour before someone was able to get help, at which time her niece came over to see her and initiate getting her over to the hospital. Prior to this, she denied any lightheadedness or dizzine ss. She denied any chest pain, palpitations, shortness of breath. Says she was otherwise within her normal health. No previous history of fractures. In the ED, patient was found to have evidence of a right intertrochanteric fracture as well as the chest x-ray revealing of an area within the general region of the left atrium, suggestive of possible left atrial enlargement versus paraspinal mass/lesion. She was given fentanyl X 1 with good control pain. She lives at home alone. Past medical history significant for hypertension, anxiety, Crohn's status post resection, and previous achalasia status post esophageal surgery. She is on verapamil 240 daily for hypertension, esomeprazole 40 daily for gastroesophageal reflux, Ativan 0.5 mg 3 times daily for anxiety, as well as mesalamine 1 g 3 times daily. Other than the aforementioned, her only other abdominal surgery is previous cholecystectomy. She denies tobacco use, alcohol use, and recreational drug use. Principal Diagnosis Right hip fracture Discharge Exam Constitutional well developed and well nourished; no acute distress Neck trachea midline, no thyromegaly Respiratory normal respiratory effort Auscultation: lungs clear to auscultation bilaterally; no crackles, no rales, no rhonchi and no wheezes Cardiovascular Rate/Rhythm: regular rate and regular rhythm Heart Sounds: normal S1 and normal S2 Extremities: no pedal edema Gastrointestinal (Abdomen) Inspection/Auscultation: abdomen normal to inspection Percussion/Palpation: abdomen soft; abdomen nontender, no guarding, abdomen not rigid and no hepatosplenomegaly Skin no rashes, warm and dry Discharge Data Allergies Allergy/AdvReac Type Severity Reaction Status Date / Time amitriptyline Allergy felt Verified 10/30/20 19:05 fearful Penicillins Allergy throat Verified 10/30/20 19:05 swelling Consultations 10/30/20 18:42 ED Decision to Admit Stat 10/30/20 20:56 Consult Anesthesiology Routine Consult Orthopedic Surgery Routine Procedures Performed Operation Date: 10/31/20 10:55 Actual Procedures p Right Short Trochanteric Nail(Right) - Rajesh Bowen, Ordered Studies 10/30/20 19:29 CT chest diagnostic wo con Stat FINDINGS: There is no axial, supra clavicle or internal mammary lymphadenopathy seen. Few mediastinal lymph nodes measure less than 1 cm in short axis which is nonpathological by CT size criteria. Thyroid: Heterogeneous appearance of visualized portion of thyroid gland with multiple ill-defined and partial calcified nodules within the right thyroid lob e. Esophagus is patulous. Thoracic aorta: The thoracic aorta is normal in course and caliber, noting standard 3 vessel arch anatomy. Heart: The heart is normal in size and configuration, without pericardial effusion. Severe coronary calcifications are seen. Lungs and pleural spaces: Tracheobronchial tree is patent. Few linear densities are seen within dependent portion of bilateral lower lobes. No large infiltrates or consolidative lesions are seen. There is elevation of the right hemidiaphragm and mild volume loss of the right hemithorax which is associated with mild midline shift to the right which could cause the mediastinal silhouette abnormalities which was seen on recent chest radiograph. No pleural effusion is seen. Upper abdomen: Partially visualized upper abdominal viscera is within normal limits. Skeletal structures: Diffuse osteopenia and multilevel degenerative changes of the spine. Multiple large Schmorl nodules are seen. Small compression fracture deformity of the T12 is seen. IMPRESSION: 1. Elevation of the right hemidiaphragm and volume loss on the right is seen with mild mediastinal shift to the right which could explain cardiomediastinal silhouette changes noted on recent chest radiograph. No evidence of paraspinal mass is seen. 2. Atelectasis at bilateral bases. 3. Heterogeneous appearance of thyroid gland with multiple small nodules on the right as detailed above. 4. Atherosclerosis. 5. The rest of findings as detailed above. 10/31/20 FL hip RT 2-3V Routine Hospital Course (1) Intertrochanteric fracture of right hip: Kimberlyn Joseph is an 85 year old female admitted to [facility] from October 30-2020 due to a fall onto her right hip. This caused a right hip fracture treated surgically by Dr Bowen on 10/31/2020 with an intramedullary troches nail. Please see additional instructions below. No complications post operatively. Consider follow up with DEXA scan in approximately 8 week to determine need to treatment for osteoporosis. Vitamin D level 34.5 within normal limits. She is now medically stable for discharge to [facility] for ongoing physical rehabilitation. (2) HTN (hypertension): (3) Crohn disease: Total Time Total Time Spent Total Time Spent (In Minutes): 35 Discharge Plan Discharge Items Patient Disposition: Transfer Nursing Home Fac Reason For Visit: R INTERTROCHANTERIC FX Discharge Diagnosis: Right hip fracture Condition on Discharge: Good Activity: Per Instructions section Non-emergency contact: Primary Care Provider and Surgeon Call non-emergency contact if: you have any medication questions and your symptoms worsen Follow-up/Referrals: Rajesh Bowen DO [Surgeon] - (Please call [facility] at [phone] to schedule a follow up appointment 10-14 days from the date of your surgery date.) Mariza Lord DO [Primary Care Provider] - Diet: Regular Addtl Attending Provider Instructions: You were admitted to [facility] from October 30-2020 due to a fall onto your right hip. This caused a right hip fracture treated surgically by Dr Bowen on 10/31/2020 with an intramedullary troches nail. Please see additional instructions below. Consider follow up with DEXA scan with your primary care physician in approximately 8 week to determine if you need treatment for osteoporosis. Addtl [employer] D[employer] Provider Instructions: [facility] DISCHARGE INSTRUCTIONS: HIP FRACTURE SELF CARE INSTRUCTIONS: A. You are to ambulate with a walker or crutches for approximately 6 weeks. B. You are WEIGHT BEARING TOLERATED on your operative lower extremity for at least 6 weeks. C. Wear low heeled shoes with non-slip soles D. Be sure that your floors are free of things that could trip you throw rugs, electrical cords, and small objects. Avoid wet and waxed floors, especially with crutches/walker/cane. E. Try to walk several times a day with rest periods between. F. You may shower 48 hours after surgery and get the incision area wet, but DO NOT soak or submerge incision area in water. (No baths, swimming pools, hot tubs) G. You may have a large, band-aid like dressing over your incision (Aquacel). This will remain on your incision for 7 days, and then can be removed. You CAN shower with this on. If incision is leaking through the dressing, please call the office . H. Do NOT apply soap or any ointment/lotions directly over incision. I. You may use ice as needed to operative site. SPECIAL CARE INSTRUCTIONS: VERY IMPORTANT TO READ AND REVIEW A. You may be at risk for phlebitis or blood clots. a. Wear surgical stockings (TESSY hose) for 2 weeks after surgery to improve circulation and reduce swelling. b. Take LOVENOX 30mg SQ Daily for 4 weeks or as directed. This is your blood thinner. B. There are a few signs you need to watch for after you are home. Call [facility] at [phone] if you experience any of the following: a. If you have a temperature of 101 degrees or higher. b. Sudden increase in pain in your hip not relieved by rest or pain medication. c. Any fluid or drainage from the incision; redness of the incision. d. Shortness of breath or chest pain. C. Call your physician if: a. Temperature is greater than 101 degrees (F). b. Pain is not relieved by prescribed pain medications. c. Increase drainage or redness from incision. d. Unanswered questions or concerns. D. Pain Medication: a. You will be prescribed pain medication upon d ischarge that should last till your first post-operative appointment. b. If you experience nausea and/or skin rash, discontinue this medication and contact our office for an alternative medication. c. Caution- narcotic pain medication can cause constipation. FOLLOW UP VISIT: Please call [facility] at [phone] to schedule a follow up appointment 10-14 days from the date of your surgery date. Pending Studies at Discharge: No Stand-Alone Forms: [facility] Patient informed of condition?: Yes DNR: No Discharge Level of Care: Acute rehab Communicable Disease: No Discharge Prognosis: Stable Lines: None Urinary Catheter: No Medications and DC Order Prescriptions: New enoxaparin [Lovenox] 30 mg/0.3 mL Syringe 30 mg subcut Q24H 28 Days Qty: 8.4 RF: 0 acetaminophen 325 mg tablet 650 mg PO Q4H PRN (Reason: pain) Qty: 30 RF: 0 Continued cyanocobalamin (vitamin B-12) [Vitamin B-12] 1,000 mcg Tablet 1,000 mcg PO DAILY RF: 0 lorazepam 0.5 mg tablet 0.5 mg PO TID RF: 0 pantoprazole 40 mg tablet,delayed release (DR/EC) 40 mg PO DAILYBB RF: 0 verapamil 240 mg tablet extended release 240 mg PO QAM RF: 0 folic acid 1 mg Tablet 1 mg PO DAILY RF: 0 escitalopram oxalate 5 mg tablet 5 mg PO PM RF: 0 Pentasa 500 mg capsule, extended release 1,000 mg PO TID RF: 0 cholecalciferol (vitamin D3) [Vitamin D3] 25 mcg (1,000 unit) Tablet 25 mcg PO DAILY@1000 RF: 0 Discharge Orders: Discharge Order (Routine); Ordered 11/04/20 Ordered By: Madhu Zarco/Other Patient Handouts: After a Hip Fracture: Common Questions Admission Data Admit Date/Time: 10/30/20 19:27 Attending Provider: Madhu De La Fuente Admit Provider: Jj Arevalo Primary Care Provider: Mariza Lord Other Providers: Italia Pope ; Alvin Gann ; Lacey Williamson ; Cuca Corona ; Leighann Crouch ; Rachel Young ; Ivonne Rajput ; Vasiliy Turner ; Akil Brown ; Maximo Mcdermott ; Hamlet Vance ; Junie Vance ; Chris Medina ; Johanna Infante ; Cristobal Diaz ; Corey Melgar ; Aditya Durand ; Shivam Gutierrez ; Yuliana Madera ; Adam Ying ; Nicky Peterson ; Laurel Ying ; Raghavendra Kirkpatrick ; Leisa Young ; Brian Alarcon ; Hiwot Qiu ; Makenna Carrillo ; Leisa Bolton ; Elvira Mnea ; Jitendra Wolf ; Vita Boyd ; Brianna Moy ; Maryuri Franklin ; Avis Brenner ; Ramon Brenner V ; Raj Sanchez ; Cuca Horton ; Josh Bush ; Johnna Lew ; Jenae Hairston ; Ramon Estrada ; Yuri Madera ; Raza Dunaway ; Harper Cruz ; Maryuri Massey ; Jean-Claude Pichardo ; Gene Gutierrez ; Fransisca Lea ; Avery Hoffmann ; Pauline Olivia ; Honorio iHckman ; Inder Jhaveri ; Avery Rios ; Vasiliy Krause Jr ; Alicia Trinidad ; Manoj Stein ; Hi Olsen ; Josh Alonzo ; Erendira Guidry ; Rajesh Bowen ; Marlin Ibrahim ; Neil Renteria ; Avery Garsia ; Adam Lynn ; Shivam Spencer ; Avery Garay ; Maximo Vazquez ; Nicholas Baldwin ; Tom Barba ; Олег Carrington ; Marlin Santiago ; Jaime Soliz ; Vasiliy Garay ; Leah Barreto ; Gene Suazo ; Laurel Pinzon Other Interventions: Discharge Summary Assessment (RN) Last Done: 11/04/20 14:56 Coding Level of Care Code D/C DAY MANAGEMENT >30 MINS Diagnoses Intertrochanteric fracture of right hip S72.141A Encounter type: initial encounter Fracture alignment: displaced Fracture type: closed HTN (hypertension) I10 Crohn disease K50.90
== END 2020-11-04 15:45 | DRG 481 ==
LOC: ED 17:49 → 3N 19:27 → SUATTDRO 19:27 → 3N 20:37